=== PATIENT | male | born 1970 | race Caucasian/White ===

== ENCOUNTER 2016-03-08 09:49 | Emergency (ER) ==
--- NOTE | 2016-03-08 10:17 | ED EKG INTERP ---
EKG Interpretation - EKG Time of EKG reading by physician:: 09:59 EKG Read and Signed by:: Carlo Pena EKG Interpretation (*Must complete 3 of following elements*): Abnormal Rate: 96 Rhythm: sinus with short MA Logan: normal ST Wave: normal Attestation - Scribe Verification/Attestation Scribe:: Macy Roy Acting as Scribe for:: Carlo Pena Scribe documention review:: This chart was documented by a scribe and accurately reflects the service the provider performed and the decisions made by the provider.
--- NOTE | 2016-03-08 10:33 | EKG Report ---
Test Performed on : 03/08/2016 09:59:00 AM Test Reason : cp/sob Blood Pressure : / mmHG Vent. Rate : 096 BPM Atrial Rate : 096 BPM P-R Int : 108 ms QRS Dur : 072 ms QT Int : 352 ms P-R-T Axes : 061 074 037 degrees QTc Int : 444 ms Sinus rhythm. with short SD Otherwise normal ECG When compared with ECG of 03-JUN-2010 11:46, Nonspecific T wave abnormality, improved in Inferior leads Unconfirmed Result
[2016-03-08] MEDS ORDERED: NS 1,000 ML IV PRN (11:24)
--- NOTE | 2016-03-08 11:24 | PROVIDER DOCUMENTATION ---
HPI-Neurological Disorder - General Source: patient, family - History of Present Illness-Neuro Severity: reports: moderate Onset/Duration: reports: 24 hours ago Timing: reports: gone now Context: reports: seizure activity Character of Altered Mental Status: reports: seizure activity Any recent trauma/injury?: reports: none New weakness or altered sensation location:: reports: none Cognitive Baseline: alert, oriented x3 Gait Baseline: walks without assistance Similar Symptoms Previously?: No Recently seen or treated by another doctor?: No <Macy Roy - Last Filed: 03/08/16 14:52> <Juanito Fischer - Last Filed: 03/08/16 15:05> - General Chief Complaint: Altered Mental Status Stated Complaint: STROKE LIKE SYMPTOMS Time Seen by Provider: 03/08/16 10:51 Allergies/Adverse Reactions: Patient Allergies Allergy/AdvReac Type Severity Reaction Status Date / Time No Known Allergies Allergy Verified 03/08/16 10:33 Home Medications: Clonazepam [Klonopin] 0.5 mg PO BID PRN PRN 11/04/15 Fluoxetine HCl [Prozac] 40 mg PO DAILY 11/04/15 - History of Present Illness-Neuro Nature of Presenting Problem: Reports severe hx of anxiety and depression controls it with Prozac and Klonopine reports been out of Klonopine for 1week. at bedside reports two episodes yesterday reports jerking and spasms confused after unable to walk or sit up afterwards. No seizure hx. Pt very anxious. (Macy Roy) Review of Systems - Adult - REVIEW OF SYSTEMS - ADULT Constitutional: denies: chills, fever, fatique Eyes: reports: no symptoms reported Ears, Nose, Mouth & Throat: denies: ear pain, sinus problem, throat pain Cardiovascular: reports: no symptoms reported Respiratory: reports: no symptoms reported Gastrointestinal: denies: abdominal pain, diarrhea, nausea, vomiting Genitourinary: reports: no symptoms reported Musculoskeletal: reports: no symptoms reported Integumentary: reports: no symptoms reported Neurological: reports: see HPI, seizure. denies: loss of balance, numbness, paresthesia Psychiatric: reports: no symptoms reported Endocrine: reports: no symptoms reported Hematologic/Lymphatic: reports: no symptoms reported Allergic/Immunologic: reports: no symptoms reported All Other Systems: Reviewed and Negative <Macy Roy - Last Filed: 03/08/16 14:52> Past History - Adult - PAST MEDICAL HISTORY-ADULT Review of Records: reports: Nursing Assessment Review, Medications Reviewed Major Childhood Illnesses: reports: denies history Cardiovascular: reports: HTN, hyperlipidemia Respiratory: reports: COPD - IMMUNIZATION STATUS Childhood Immunizations: See Nurse Assessment Flu Vaccine: See Nurse Assessment - SOCIAL HISTORY Smoking: cigarettes, greater than 1 pack/day Provider spent 3-5 mins advising pt. on dangers of tobacco.: Discussed manners to quit use, and f/u contacts for add'l counseling. Substance Use: none/never <Macy Roy - Last Filed: 03/08/16 14:52> Physical Exam- Neurological - Physical Exam-Neuro Initial Vital Signs Reviewed: Yes General Appearance: appears well, alert, no apparent distress, anxious Eye Exam: bilateral eye: normal inspection, PERRL, EOMI HENMT: normocephalic/atraumatic, normal ENT inspection, TMs normal, pharynx normal Head Injury: no evidence of injury Neck: non-tender, full range of motion, supple, normal inspection Respiratory: chest non-tender, lungs clear, normal breath sounds, no pleuratic chest pain, no respiratory distress, no accessory muscle use Cardiovascular: normal peripheral pulses, regular rate, rhythm, no edema, no gallop, no JVD, no murmur Abdominal Exam: normal bowel sounds, non tender, soft, no organomegaly, no pulsatile mass Lymphatic: no adenopathy Extremity: normal range of motion, non-tender, normal gait, normal inspection, no pedal edema, no calf tenderness, normal capillary refill, pelvis stable web software engineer Exam: normal hearing, normal speech, PERRL Coordination/Gait: normal finger to nose, normal gait, negative Romberg's sign Motor/Sensory: no motor deficit, no sensory deficit, no pronator drift, negative Babinski's sign Neurologic: web software engineer II-XII nml as tested, grossly normal, no motor/sensory deficits Integumentary: normal color, normal turgor, warm/dry Psych/Mental Status: normal thought content, normal thought process, oriented x 3, anxious - Glascow Coma Scale Best Eye Response: (4) open spontaneously Best Verbal Response: (5) oriented Best Motor Response: (6) obeys commands Total Glascow Score: 15 <Macy Roy - Last Filed: 03/08/16 14:52> Progress - XRAY 1 XRAY: Bilateral XRAY Study: Chest Impression: Normal XRAY Interpretation: nad 2 XRAY: Bilateral XRAY Study: Chest Impression: Normal - CT/MRI 1 CT Study: Head Impression: Normal CT Results: nad <Macy Roy - Last Filed: 03/08/16 14:52> <Juanito Fischer - Last Filed: 03/08/16 15:05> - PLAN OF CARE/RESULTS Progress/Plan/Lab Results: Orders Category Date Time Status EKG [EKG] Stat Ther 03/08/16 09:56 Draft Vital Signs - 24 hr 03/08/16 10:01 Temperature 98.1 F Pulse Rate 96 H Respiratory 20 Rate Blood Pressure 171/83 O2 Sat by Pulse 99 Oximetry Orders Category Date Time Status Cardiac Monitoring DIRECTED Care 03/08/16 11:24 Active Finger Stick Blood Sugar (ED) DIRECTED Care 03/08/16 11:24 Active Misc. NRSG Communication Order DIRECTED Care 03/08/16 11:24 Active Saline Loc NOW Care 03/08/16 11:24 Active CHEST-PORTABLE [RAD] Stat Exams 03/08/16 11:24 Completed HEAD W/O CONTRAST [CT] Stat Exams 03/08/16 11:24 Completed CBC WITH ELECTRONIC DIFF [HEME] Stat Lab 03/08/16 10:25 Completed COMPREHENSIVE METABOLIC PANEL [CHEM] Stat Lab 03/08/16 10:25 Completed PROTIME WITH INR [COAG] Stat Lab 03/08/16 10:25 Completed PTT [COAG] Stat Lab 03/08/16 10:25 Completed TROPONIN T Stat Lab 03/08/16 10:25 Completed URINALYSIS W/POSS RFLX CULT [URINALYSIS] Stat Lab 03/08/16 14:21 Completed URINE DRUG SCREEN Stat Lab 03/08/16 14:21 Received 0.9% Sodium Chloride Inj [Ns] 1,000 ml Med 03/08/16 11:24 Active IV As Directed Lorazepam [Ativan] Med 03/08/16 11:38 Discontinued 0.5 mg IV NOW ONE Lorazepam [Ativan] Med 03/08/16 11:39 Discontinued 0.5 mg IV NOW ONE EKG [EKG] Stat Ther 03/08/16 09:56 Draft Laboratory Tests 03/08/16 03/08/16 03/08/16 10:25 10:25 10:25 WBC 11.42 H RBC 4.86 Hgb 15.6 Hct 45.4 MCV 93.4 MCH 32.1 H MCHC 34.4 RDW Std Deviation 14.1 Plt Count 415 H MPV 8.8 Immature Gran % (Auto) 0.2 Neut % (Auto) 67.2 Lymph % (Auto) 22.8 [place] % (Auto) 8.3 Eos % (Auto) 0.9 Baso % (Auto) 0.6 Immature Gran # (Auto) 0.02 Neut # (Auto) 7.68 H Lymph # (Auto) 2.60 [place] # (Auto) 0.95 H Eos # (Auto) 0.10 Baso # (Auto) 0.07 PT 11.4 INR 1.07 PTT (Actin FS) 28.9 Sodium 127 L Potassium 4.0 Chloride 92 L Carbon Dioxide 23 L Anion Gap 12 BUN 15 Creatinine 0.9 Estimated GFR/1.73 m2 > 60 BUN/Creatinine Ratio 17 Glucose 97 Calculated Osmolality 256 Calcium 9.2 Total Bilirubin 0.42 AST 14 ALT 11 Alkaline Phosphatase 63 Troponin T Total Protein 7.0 Albumin 4.3 Globulin 2.7 Albumin/Globulin Ratio 1.6 Urine Source Urine Color Urine Turbidity Urine pH Ur Specific [place] Urine Protein Ur Glucose (Stick) Ur Ketones (Stick) Urine Blood Urine Nitrite Urine Bilirubin Urobilinogen Dipstick Urine Leukocytes Urine WBC (Auto) Urine RBC (Auto) U Epithel Cells (Auto) Urine Bacteria (Auto) 03/08/16 03/08/16 10:25 14:21 WBC RBC Hgb Hct MCV MCH MCHC RDW Std Deviation Plt Count MPV Immature Gran % (Auto) Neut % (Auto) Lymph % (Auto) [place] % (Auto) Eos % (Auto) Baso % (Auto) Immature Gran # (Auto) Neut # (Auto) Lymph # (Auto) [place] # (Auto) Eos # (Auto) Baso # (Auto) PT INR PTT (Actin FS) Sodium Potassium Chloride Carbon Dioxide Anion Gap BUN Creatinine Estimated GFR/1.73 m2 BUN/Creatinine Ratio Glucose Calculated Osmolality Calcium Total Bilirubin AST ALT Alkaline Phosphatase Troponin T < 0.010 Total Protein Albumin Globulin Albumin/Globulin Ratio Urine Source CLEAN CATCH Urine Color YELLOW Urine Turbidity CLEAR Urine pH 5.5 Ur Specific [place] 1.028 Urine Protein TRACE A Ur Glucose (Stick) NEGATIVE Ur Ketones (Stick) NEGATIVE Urine Blood NEGATIVE Urine Nitrite NEGATIVE Urine Bilirubin NEGATIVE Urobilinogen Dipstick NORMAL Urine Leukocytes NEGATIVE Urine WBC (Auto) <10 Urine RBC (Auto) <10 U Epithel Cells (Auto) <10 Urine Bacteria (Auto) NEGATIVE (Macy Roy) Laboratory Tests 03/08/16 03/08/16 03/08/16 10:25 10:25 10:25 WBC 11.42 H RBC 4.86 Hgb 15.6 Hct 45.4 MCV 93.4 MCH 32.1 H MCHC 34.4 RDW Std Deviation 14.1 Plt Count 415 H MPV 8.8 Immature Gran % (Auto) 0.2 Neut % (Auto) 67.2 Lymph % (Auto) 22.8 [place] % (Auto) 8.3 Eos % (Auto) 0.9 Baso % (Auto) 0.6 Immature Gran # (Auto) 0.02 Neut # (Auto) 7.68 H Lymph # (Auto) 2.60 [place] # (Auto) 0.95 H Eos # (Auto) 0.10 Baso # (Auto) 0.07 PT 11.4 INR 1.07 PTT (Actin FS) 28.9 Sodium 127 L Potassium 4.0 Chloride 92 L Carbon Dioxide 23 L Anion Gap 12 BUN 15 Creatinine 0.9 Estimated GFR/1.73 m2 > 60 BUN/Creatinine Ratio 17 Glucose 97 Calculated Osmolality 256 Calcium 9.2 Total Bilirubin 0.42 AST 14 ALT 11 Alkaline Phosphatase 63 Troponin T Total Protein 7.0 Albumin 4.3 Globulin 2.7 Albumin/Globulin Ratio 1.6 Urine Source Urine Color Urine Turbidity Urine pH Ur Specific [place] Urine Protein Ur Glucose (Stick) Ur Ketones (Stick) Urine Blood Urine Nitrite Urine Bilirubin Urobilinogen Dipstick Urine Leukocytes Urine WBC (Auto) Urine RBC (Auto) U Epithel Cells (Auto) Urine Bacteria (Auto) Urine Opiates Screen Ur Oxycodone Screen Ur Methadone, Qual Ur Barbiturates Screen Ur Phencyclidine Scrn Ur Amphetamines Screen U Benzodiazepines Scrn Urine Cocaine Screen U Cannabinoids Screen 03/08/16 03/08/16 03/08/16 10:25 14:21 14:21 WBC RBC Hgb Hct MCV MCH MCHC RDW Std Deviation Plt Count MPV Immature Gran % (Auto) Neut % (Auto) Lymph % (Auto) [place] % (Auto) Eos % (Auto) Baso % (Auto) Immature Gran # (Auto) Neut # (Auto) Lymph # (Auto) [place] # (Auto) Eos # (Auto) Baso # (Auto) PT INR PTT (Actin FS) Sodium Potassium Chloride Carbon Dioxide Anion Gap BUN Creatinine Estimated GFR/1.73 m2 BUN/Creatinine Ratio Glucose Calculated Osmolality Calcium Total Bilirubin AST ALT Alkaline Phosphatase Troponin T < 0.010 Total Protein Albumin Globulin Albumin/Globulin Ratio Urine Source CLEAN CATCH Urine Color YELLOW Urine Turbidity CLEAR Urine pH 5.5 Ur Specific [place] 1.028 Urine Protein TRACE A Ur Glucose (Stick) NEGATIVE Ur Ketones (Stick) NEGATIVE Urine Blood NEGATIVE Urine Nitrite NEGATIVE Urine Bilirubin NEGATIVE Urobilinogen Dipstick NORMAL Urine Leukocytes NEGATIVE Urine WBC (Auto) <10 Urine RBC (Auto) <10 U Epithel Cells (Auto) <10 Urine Bacteria (Auto) NEGATIVE Urine Opiates Screen NONE DETECTED Ur Oxycodone Screen NONE DETECTED Ur Methadone, Qual NONE DETECTED Ur Barbiturates Screen NONE DETECTED Ur Phencyclidine Scrn NONE DETECTED Ur Amphetamines Screen NONE DETECTED U Benzodiazepines Scrn PRESUMPTIVE POSITIVE A Urine Cocaine Screen NONE DETECTED U Cannabinoids Screen NONE DETECTED (Juanito Fischer) Departure - Departure Time of Disposition Order: 14:53 Certified Medical Emergency: Emergent <Macy Roy - Last Filed: 03/08/16 14:52> - Departure Time of Disposition Order: 15:04 Certified Medical Emergency: Emergent <Juanito Fischer - Last Filed: 03/08/16 15:05> - Departure DIAGNOSIS: Panic attack Disposition: HOME 01 Condition: Good Prescriptions: Chlordiazepoxide [Librium] 25 mg PO Q6H PRN PRN #7 capsule PRN Reason: Anxiety Referrals: None,PCP [Primary Care Provider] - Attestation - Scribe Verification/Attestation Scribe:: Macy Roy Acting as Scribe for:: Juanito Fischer Scribchidi documention review:: This chart was documented by a scribe and accurately reflects the service the provider performed and the decisions made by the provider. <Macy Roy - Last Filed: 03/08/16 14:52> Physician Attestation
[2016-03-08] MEDS ORDERED: ATIVAN IV ONE ×2 (11:38→11:39)
[2016-03-08 11:45] LABS: MANUAL DIFF NEEDED? NO
[2016-03-08 11:47] LABS: BASO% 0.6 % (0.0-0.8); EOS% 0.9 % (0.0-10.0); HEMATOCRIT 45.4 % (42.0-52.0); HEMOGLOBIN 15.6 g/dL (14.0-18.0); IMM GRAN# 0.02 X1000 (0.0-0.04); IMM GRAN% 0.2 % (0.0-0.5); LYMPH% 22.8 % (20.5-51.1); MCH 32.1 PG (27-31); MCHC 34.4 g/dL (33-37); MCV 93.4 FL (81-99); MONO# 0.95 X1000 (0.11-0.59); MONO% 8.3 % (1.7-9.3); MPV 8.8 FL (7.4-10.4); NEUT% 67.2 % (42.2-75.2); PLT 415 X1000 (130-400); RBC 4.86 XMIL (4.7-6.1)
[2016-03-08 11:57] LABS: INR 1.07; PROTIME 11.4 Seconds (9.2-11.7); PTT 28.9 Seconds (22.0-36.0)
[2016-03-08 12:19] LABS: AGAP 12; ALBUMIN 4.3 g/dL (3.5-5.0); ALKALINE PHOSPHATASE 63 U/L (32-122); BUN 15 mg/dL (8-22); CALCIUM 9.2 mg/dL (8.8-10.2); CHLORIDE 92 mmol/L (98-107); COSMO 256; GOT 14 U/L (10-34); GPT 11 U/L (10-44); SODIUM 127 mmol/L (136-145); TCO2 23 mmol/L (25-35); TOTAL BILIRUBIN 0.42 mg/dL (0.20-1.00)
--- NOTE | 2016-03-08 13:28 | Diag Imaging Result Document ---
PROCEDURE NAME: HEAD W/O CONTRAST - 03/08/2016 CT OF THE HEAD WITHOUT CONTRAST: FINDINGS: There is no evidence of mass effect, bleed, or abnormal extraaxial fluid collection. There are calcifications in the internal carotid arteries bilaterally. Compared to 09/13/2011, there has been no significant change in the appearance of the brain. IMPRESSION: Stable CT of the head.
--- NOTE | 2016-03-08 13:31 | Diag Imaging Result Document ---
PROCEDURE NAME: CHEST-PORTABLE - 03/08/2016 AP PORTABLE CHEST: TIME: 1208 hours. FINDINGS: There are calcifications in the left hilum. There is no evidence of acute cardiac or pulmonary disease. Compared to 06/03/2010, there has been no significant change. IMPRESSION: No acute disease.
[2016-03-08 14:32] LABS: URINE CULTURE NEEDED? NO; URINE MICRO REVIEW NEEDED? NO; URINE SOURCE CLEAN CATCH
[2016-03-08 14:37] LABS: BILIRUBIN URINE NEGATIVE (NEGATIVE); BLOOD URINE NEGATIVE (NEGATIVE); COLOR YELLOW; GLUCOSE URINE NEGATIVE (NEGATIVE); LEUKOCYTES URINE NEGATIVE (NEGATIVE); NITRITE URINE NEGATIVE (NEGATIVE); PH URINE 5.5; PROTEIN URINE TRACE mg/dL (NEGATIVE); SP GRAVITY URINE 1.028; TURBIDITY URINE CLEAR (CLEAR); UR EPITHELIAL CELLS <10 /HPF (<10); URINE BACTERIA NEGATIVE /HPF; URINE RBC <10 /HPF (<10); URINE WBC <10 /HPF (<10); UROBILINOGEN URINE NORMAL (NORMAL)
[2016-03-08 14:57] LABS: UR AMPHETAMINES QUAL NONE DETECTED (NONE DETECT); UR BARBITUATES QUAL NONE DETECTED (NONE DETECT); UR BENZODIAZEPIN QUAL PRESUMPTIVE POSITIVE (NONE DETECT); UR CANNABINOIDS QUAL NONE DETECTED (NONE DETECT); UR COCAINE QUAL NONE DETECTED (NONE DETECT); UR METHADONE QUAL NONE DETECTED (NONE DETECT); UR OPIATES QUAL NONE DETECTED (NONE DETECT); UR OXYCODONE QUAL NONE DETECTED (NONE DETECT); UR PCP QUAL NONE DETECTED (NONE DETECT)
[2016-03-08 15:11] VITALS: BP 136/90
== END 2016-03-08 15:22 | disposition home or self-care (01) ==
LOC: ED 09:49
DX: F41.0 Panic disorder [episodic paroxysmal anxiety] (principal); I10 Essential (primary) hypertension; E78.5 Hyperlipidemia, unspecified; J44.9 Chronic obstructive pulmonary disease, unspecified; F17.210 Nicotine dependence, cigarettes, uncomplicated; Z71.6 Tobacco abuse counseling; Z79.899 Other long term (current) drug therapy
CPT/HCPCS: 70450; 71010; 80053; 81001; 84484; 85025; 85610; 85730; 93005; 96374; 96376; G0480; J2060

== ENCOUNTER 2018-11-09 14:13 | Inpatient (IN) ==
[2018-11-09] MEDS ORDERED: NS 1,000 ML IV PRN (14:33)
--- NOTE | 2018-11-09 14:54 | Diag Imaging Result Doc PS360 ---
EXAM: CT HEAD W/O CONTRAST INDICATION: stroke like TECHNIQUE: This exam was performed using automated exposure control, adjustment of mA or kV according to patient size, and/or use of iterative reconstruction technique. COMPARISON: 03/08/2016 FINDINGS: There is no definite acute infarct given the limited sensitivity of CT versus MRI. There is no discrete intracranial mass, mass effect, or intracranial hemorrhage. The surrounding soft tissues and bony structures are essentially unremarkable. IMPRESSION: No evidence of acute intracranial pathology. Electronically signed by Kwame Malik 11/09/2018 2:52 PM
[2018-11-09 15:29] LABS: INR 0.96; PROTIME 12.9 Seconds (11.0-16.0)
[2018-11-09 15:30] LABS: PTT 32.2 Seconds (22.3-41.8)
[2018-11-09 15:32] LABS: BASO# 0.03 X1000 (0.0-0.2); BASO% 0.5 % (0.0-0.8); EOS# 0.05 X1000 (0.0-0.7); EOS% 0.8 % (0.0-10.0); HEMATOCRIT 42.8 % (42.0-52.0); HEMOGLOBIN 14.6 g/dL (14.0-18.0); LYMPH# 1.77 X1000 (1.2-3.4); LYMPH% 26.9 % (20.5-51.1); MCH 31.5 PG (27-31); MCHC 34.1 g/dL (33-37); MCV 92.2 FL (81-99); MONO# 0.67 X1000 (0.11-0.59); MONO% 10.2 % (1.7-9.3); MPV 9.3 FL (7.4-10.4); NEUT# 4.07 X1000 (1.4-6.5); NEUT% 61.6 % (42.2-75.2); PLT 242 X1000 (130-400); RBC 4.64 XMIL (4.7-6.1); RDW 13.7 % (11.5-14.5); WBC 6.59 X1000 (4.8-10.8)
[2018-11-09 15:59] LABS: AGAP 15; ALB/GLOB RATIO 1.8; ALBUMIN 4.1 g/dL (3.5-5.0); ALKALINE PHOSPHATASE 62 U/L (32-122); BUN 14 mg/dL (8-22); CALCIUM 8.4 mg/dL (8.8-10.2); CHLORIDE 96 mmol/L (98-107); COSMO 273; CREATININE 0.6 mg/dL (0.7-1.2); ESTIMATED GFR > 60; GLUCOSE 105 mg/dL (70-104); GOT 40 U/L (10-34); GPT 46 U/L (10-44); POTASSIUM 4.4 mmol/L (3.5-5.1); SODIUM 136 mmol/L (136-145); TCO2 25 mmol/L (25-35); TOTAL BILIRUBIN < 0.15 mg/dL (0.20-1.00); TOTAL PROTEIN 6.4 g/dL (6.3-8.3)
--- NOTE | 2018-11-09 16:26 | Diag Imaging Result Doc PS360 ---
EXAM: CHEST-PORTABLE INDICATION: stroke like symptoms TECHNIQUE: One view COMPARISON: 10/14/2017 FINDINGS: There is evidence of prior granulomatous disease, stable. The lungs are grossly clear. There is no discrete pleural fluid collection or pneumothorax. The cardiomediastinal silhouette and central vasculature are grossly unremarkable. IMPRESSION: No evidence of acute pathology by plain radiograph. Electronically signed by Kwame Malik 11/09/2018 4:24 PM
--- NOTE | 2018-11-09 18:02 | PROVIDER DOCUMENTATION ---
This chart was entered by Radha Malik Scribe, acting as scribe for Nevaeh Shepard MD. HPI-Neurological Disorder - General Source: patient, RN/MD <Nevaeh Shepard - Last Filed: 11/09/18 19:01> <Shweta Terry - Last Filed: 11/09/18 19:35> - General Chief Complaint: Stroke-Like Symptoms Stated Complaint: STROKE LIKE SYMPTOMS Time Seen by Provider: 11/09/18 14:33 Allergies/Adverse Reactions: Patient Allergies Allergy/AdvReac Type Severity Reaction Status Date / Time ketorolac tromethamine * Allergy Unknown Verified 11/09/18 16:17 [From Toradol] meperidine HCl * Allergy Unknown Verified 11/09/18 16:17 [From Demerol] Penicillins Allergy RASH Verified 11/09/18 16:17 tramadol AdvReac Unknown Verified 11/09/18 16:17 Home Medications: Home Medication List Medication Instructions Recorded Confirmed Last Taken Type Hydrocodone/Acetaminophen [[place] 1 each PO Q4-6H PRN PRN #20 tablet 08/16/17 11/09/18 11/08/18 09:00 Rx 10-325 Tablet] Albuterol Sulfate Inhaler 2 puff INH Q6H PRN PRN #1 inhaler 10/14/17 11/09/18 Unknown Rx [Ventolin Hfa] Clonazepam [Klonopin] 1 mg PO BID PRN PRN 10/14/17 11/09/18 Unknown History Venlafaxine [Effexor] 150 mg PO DAILY 11/09/18 11/09/18 Unknown History - History of Present Illness-Neuro Nature of Presenting Problem: 48 yowm c/o left sided weakness, slight left sided facial droop, minimal slurred speech, ataxia and trouble standing/walking. pt sts started feeling disoriented monday. denies alcohol use. pt has rash on face. denies cp, h/a, and nvd. (Nevaeh Shepard) Review of Systems - Adult - REVIEW OF SYSTEMS - ADULT Constitutional: reports: no symptoms reported. denies: fever, fatique, night sweats Eyes: reports: no symptoms reported Ears, Nose, Mouth & Throat: reports: no symptoms reported Cardiovascular: reports: no symptoms reported. denies: chest pain, edema, palpitations Respiratory: reports: no symptoms reported Gastrointestinal: reports: no symptoms reported. denies: diarrhea, nausea, vomiting Genitourinary: reports: no symptoms reported Musculoskeletal: reports: see HPI, muscle weakness (left sided). denies: joint pain, joint swelling, muscle aches Integumentary: reports: no symptoms reported Neurological: reports: see HPI, ataxia, slurred speech, other (left sided facial droop slight). denies: dizziness/vertigo, headache/migraines, syncope Psychiatric: reports: no symptoms reported. denies: alcohol/drug dependence Endocrine: reports: no symptoms reported Hematologic/Lymphatic: reports: no symptoms reported Allergic/Immunologic: reports: no symptoms reported All Other Systems: Reviewed and Negative <Nevaeh Shepard - Last Filed: 11/09/18 19:01> Past History - Adult - PAST MEDICAL HISTORY-ADULT Review of Records: reports: Old Records Reviewed, Nursing Assessment Review, Medications Reviewed, Social history reviewed & non-contributory. Major Childhood Illnesses: reports: denies history Cardiovascular: reports: HTN, hyperlipidemia Respiratory: reports: COPD Gastrointestinal: reports: denies history Obstetrical/Gynecological: reports: denies history Genitourinary: reports: denies history Musculoskeletal: reports: chronic pain Neurological: reports: denies history Psychiatric: reports: anxiety, depression Endocrine/Immune: reports: denies history Other Conditions: reports: denies history - PRIOR SURGERIES/PROCEDURES Surgical/Procedure History: reports: tonsillectomy, back/neck - IMMUNIZATION STATUS Childhood Immunizations: See Nurse Assessment Flu Vaccine: See Nurse Assessment - FAMILY HISTORY Family History: reviewed, not pertinent - SOCIAL HISTORY Smoking: cigarettes, greater than 1 pack/day Provider spent 3-5 mins advising pt. on dangers of tobacco.: Discussed manners to quit use, and f/u contacts for add'l counseling. Substance Use: none/never <Nevaeh Shepard - Last Filed: 11/09/18 19:01> Physical Exam- Neurological - Physical Exam-Neuro Initial Vital Signs Reviewed: Yes General Appearance: alert, no apparent distress. negative: lethargic, slow to respond, obtunded Eye Exam: bilateral eye: PERRL, EOMI, other (rash around the left orbit associat ed with episleritis and blepharitis ) HENMT: normocephalic/atraumatic, moist mucous membranes, normal ENT inspection, other ( encephalitis on face, left sided facial droop). negative: frontal tenderness, maxillary tenderness Head Injury: no evidence of injury. negative: ecchymosis, lacerations, swelling, tenderness Neck: non-tender, full range of motion, supple, normal inspection Respiratory: chest non-tender, lungs clear, normal breath sounds Cardiovascular: normal peripheral pulses, regular rate, rhythm Abdominal Exam: normal bowel sounds, non tender, soft Lymphatic: no adenopathy Peripheral Pulses: radial (R): 2+, radial (L): 2+ Extremity: non-tender, normal capillary refill, abnormal NV exam. negative: normal range of motion, normal gait, normal inspection, deformity, erythema, inflammation belt maker helper Exam: normal hearing, PERRL, abnormal speech (slight slurred), facial droop (left facial), facial weakness (left facial). negative: normal speech, abnormal eye position, abnormal gag reflex, abnormal pupil position, gaze palsy Coordination/Gait: abnormal gait (has to have assistance from rn when standing, would not walk as asked). negative: normal gait Motor/Sensory: weak motor strength RLE, weak motor strength LLE. negative: no motor deficit, no sensory deficit, weak motor strength RUE, weak motor strength LUE Neurologic: abnormal gait, facial droop (left), motor weakness (left sided). negative: belt maker helper II-XII nml as tested, grossly normal, no motor/sensory deficits, EOM palsy Integumentary: normal color, normal turgor, warm/dry, zoster-like rash (face). negative: abrasion(s), ecchymosis, embolic lesions Psych/Mental Status: normal mood/affect, normal thought content, normal thought process, oriented x 3 - Glascow Coma Scale Best Eye Response: (4) open spontaneously Best Verbal Response: (4) confused conversation Best Motor Response: (6) obeys commands Total Glascow Score: 15 <Nevaeh Shepard - Last Filed: 11/09/18 19:01> Progress - PLAN OF CARE/RESULTS Result Diagrams: 11/09/18 15:04 11/09/18 15:04 - REASSESSMENT Reassessment #1 Time Reassessed: 17:47 Status: other (pt sts that he takes klonopin and anti depressants.) - EKG 1 Time of EKG reading by physician:: 14:55 EKG Read and Signed by:: Nevaeh Shepard EKG Interpretation (*Must complete 3 of following elements*): Normal Rate: 92 Rhythm: SR w/short IA [place]: normal QRS: normal IA Interval: shortened ST Wave: normal - CT/MRI 1 CT Study: Head Impression: Normal, See EMR Report ( EXAM: CT HEAD W/O CONTRAST INDICATION: stroke like TECHNIQUE: This exam was performed using automated exposure control, adjustment of mA or kV according to patient size, and/or use of iterative reconstruction technique. COMPARISON: 03/08/2016 FINDINGS: There is no definite acute infarct given the limited sensitivity of CT versus MRI. There is no discrete intracranial mass, mass effect, or intracranial hemorrhage. The surrounding soft tissues and bony structures are essentially unremarkable. IMPRESSION: No evidence of acute intracranial pathology. Electronically signed by Kwame Malik 11/09/2018 2:52 PM) - CONSULTS/PCP/HOSPITALIST Notification #1 *Consult/PCP/Hospitalist*: Dr Patterson Time Discussed: 18:26 Consult Disposition: other (consulted with Dr Patterson who recommended MRI and admited patient,) - CHANGE OF SHIFT REPORT (ED Provider) 1 Report Given and Care Transferred to:: Dr. Terry Time of Transfer: 19:01 <Nevaeh Shepard - Last Filed: 11/09/18 19:01> - PLAN OF CARE/RESULTS Result Diagrams: 11/09/18 15:04 11/09/18 15:04 - REASSESSMENT Reassessment #2 Status: improving (Pt signed out to me by Dr. Shepard pending admission by the hospitalist. Discussed case with Dr. Castellano, hospitalist who will see and admit pt.) <Shweta Terry - Last Filed: 11/09/18 19:35> - PLAN OF CARE/RESULTS Progress/Plan/Lab Results: Vital Signs - 8 hr 11/09/18 14:27 11/09/18 16:20 Temperature 97.4 F L Pulse Rate 103 H 91 H Respiratory Rate 18 24 Blood Pressure 110/73 127/79 O2 Sat by Pulse Oximetry 98 96 Laboratory Results - last 24 hr 11/09/18 11/09/1819 15:04 15:04 15:04 WBC 6.59 RBC 4.64 L Hgb 14.6 Hct 42.8 MCV 92.2 MCH 31.5 H MCHC 34.1 RDW Std Deviation 13.7 Plt Count 242 MPV 9.3 Immature Gran % (Auto) 0.0 Neut % (Auto) 61.6 Lymph % (Auto) 26.9 [place] % (Auto) 10.2 H Eos % (Auto) 0.8 Baso % (Auto) 0.5 Immature Gran # (Auto) 0.00 Neut # (Auto) 4.07 Lymph # (Auto) 1.77 [place] # (Auto) 0.67 H Eos # (Auto) 0.05 Baso # (Auto) 0.03 PT 12.9 INR 0.96 PTT (Actin FS) 32.2 Sodium 136 Potassium 4.4 Chloride 96 L Carbon Dioxide 25 Anion Gap 15 BUN 14 Creatinine 0.6 L Estimated GFR/1.73 m2 > 60 BUN/Creatinine Ratio 23 Glucose 105 H Calculated Osmolality 273 Calcium 8.4 L Total Bilirubin < 0.15 L AST 40 H ALT 46 H Alkaline Phosphatase 62 Troponin T Total Protein 6.4 Albumin 4.1 Globulin 2.3 Albumin/Globulin Ratio 1.8 Urine Source Urine Color Urine Turbidity Urine pH Ur Specific [place] Urine Protein Ur Glucose (Stick) Ur Ketones (Stick) Urine Blood Urine Nitrite Urine Bilirubin Urobilinogen Dipstick Urine Leukocytes Urine WBC (Auto) Urine RBC (Auto) U Epithel Cells (Auto) Urine Bacteria (Auto) Urine Opiates Screen Ur Oxycodone Screen Ur Methadone, Qual Ur Barbiturates Screen Ur Phencyclidine Scrn Ur Amphetamines Screen U Benzodiazepines Scrn Urine Cocaine Screen U Cannabinoids Screen Plasma/Serum Ethyl Alc 11/09/18 11/09/18 11/09/18 15:04 15:04 18:10 WBC RBC Hgb Hct MCV MCH MCHC RDW Std Deviation Plt Count MPV Immature Gran % (Auto) Neut % (Auto) Lymph % (Auto) [place] % (Auto) Eos % (Auto) Baso % (Auto) Immature Gran # (Auto) Neut # (Auto) Lymph # (Auto) [place] # (Auto) Eos # (Auto) Baso # (Auto) PT INR PTT (Actin FS) Sodium Potassium Chloride Carbon Dioxide Anion Gap BUN Creatinine Estimated GFR/1.73 m2 BUN/Creatinine Ratio Glucose Calculated Osmolality Calcium Total Bilirubin AST ALT Alkaline Phosphatase Troponin T < 0.010 Total Protein Albumin Globulin Albumin/Globulin Ratio Urine Source CLEAN CATCH Urine Color YELLOW Urine Turbidity CLEAR Urine pH 6.5 Ur Specific [place] 1.023 Urine Protein 30 A Ur Glucose (Stick) 70 A Ur Ketones (Stick) NEGATIVE Urine Blood NEGATIVE Urine Nitrite NEGATIVE Urine Bilirubin NEGATIVE Urobilinogen Dipstick 3 A Urine Leukocytes NEGATIVE Urine WBC (Auto) <10 Urine RBC (Auto) <10 U Epithel Cells (Auto) <10 Urine Bacteria (Auto) NEGATIVE Urine Opiates Screen Ur Oxycodone Screen Ur Methadone, Qual Ur Barbiturates Screen Ur Phencyclidine Scrn Ur Amphetamines Screen U Benzodiazepines Scrn Urine Cocaine Screen U Cannabinoids Screen Plasma/Serum Ethyl Alc 36 H 11/09/18 18:10 WBC RBC Hgb Hct MCV MCH MCHC RDW Std Deviation Plt Count MPV Immature Gran % (Auto) Neut % (Auto) Lymph % (Auto) [place] % (Auto) Eos % (Auto) Baso % (Auto) Immature Gran # (Auto) Neut # (Auto) Lymph # (Auto) [place] # (Auto) Eos # (Auto) Baso # (Auto) PT INR PTT (Actin FS) Sodium Potassium Chloride Carbon Dioxide Anion Gap BUN Creatinine Estimated GFR/1.73 m2 BUN/Creatinine Ratio Glucose Calculated Osmolality Calcium Total Bilirubin AST ALT Alkaline Phosphatase Troponin T Total Protein Albumin Globulin Albumin/Globulin Ratio Urine Source Urine Color Urine Turbidity Urine pH Ur Specific [place] Urine Protein Ur Glucose (Stick) Ur Ketones (Stick) Urine Blood Urine Nitrite Urine Bilirubin Urobilinogen Dipstick Urine Leukocytes Urine WBC (Auto) Urine RBC (Auto) U Epithel Cells (Auto) Urine Bacteria (Auto) Urine Opiates Screen NONE DETECTED Ur Oxycodone Screen NONE DETECTED Ur Methadone, Qual NONE DETECTED Ur Barbiturates Screen NONE DETECTED Ur Phencyclidine Scrn NONE DETECTED Ur Amphetamines Screen PRESUMPTIVE POSITIVE A U Benzodiazepines Scrn NONE DETECTED Urine Cocaine Screen NONE DETECTED U Cannabinoids Screen NONE DETECTED Plasma/Serum Ethyl Alc Orders Category Date Time Status Cardiac Monitoring DIRECTED Care 11/09/18 14:33 Active Finger Stick Blood Sugar (ED) DIRECTED Care 11/09/18 14:33 Active Misc. NRSG Communication Order DIRECTED Care 11/09/18 14:33 Active Saline Loc NOW Care 11/09/18 14:33 Active CHEST-PORTABLE [RAD] Stat Exams 11/09/18 14:[address] HEAD W/O CONTRAST [CT] Stat Exams 11/09/18 14:31 Completed ALCOHOL BLOOD Stat Lab 11/09/18 15:04 Completed CBC WITH ELECTRONIC DIFF [HEME] Stat Lab 11/09/18 15:04 Completed COMPREHENSIVE METABOLIC PANEL [CHEM] Stat Lab 11/09/18 15:04 Completed PROTIME WITH INR [COAG] Stat Lab 11/09/18 15:04 Completed PTT [COAG] Stat Lab 11/09/18 15:04 Completed TROPONIN T Stat Lab 11/09/18 15:04 Completed URINALYSIS W/POSS RFLX CULT [URINALYSIS] Stat Lab 11/09/18 18:10 Completed URINE DRUG SCREEN Stat Lab 11/09/18 18:10 Completed 0.9% Sodium Chloride Inj [Ns] 1,000 ml Med 11/09/18 14:33 Active IV 999 mls/hr Acyclovir [Zovirax] 635 mg Med 11/09/18 19:00 Active 0.9% Sodium Chloride Inj [Ns] 100 ml IV ONCE Acyclovir [Zovirax] 635 mg Med 11/09/18 18:15 Ordered 0.9% Sodium Chloride Inj [Ns] 100 ml IV Q8H Hydrocodone/APAP 5 mg/325 mg [[place]-5] Med 11/09/18 18:10 Discontinued 1 each PO NOW ONE EKG [EKG] Stat Ther 11/09/18 14:33 Draft Departure - Departure Date of Disposition Decision: 11/09/18 Time of Disposition Decision: 18:02 Certified Medical Emergency: Emergent - Critical Care Note This patient required my direct & personal management of CC.: No <Nevaeh Shepard - Last Filed: 11/09/18 19:01> <Shweta Terry - Last Filed: 11/09/18 19:35> - Departure DIAGNOSIS: Herpes zoster ophthalmicus of left eye, Left-sided weakness Disposition: ADMITTED INPATIENT 09 Condition: Serious Attestation - Physician/ ASH Attestation Patient care was provided by Advanced Practice Provider:: No The physician spent face to face time with patient:: Yes Advanced Practice Provider documentation review:: Supervising physician onsite and consulted in the evaluation and care of this patient. The physician did have a face to face encounter with the patient. <Nevaeh Shepard - Last Filed: 11/09/18 19:01> - NIH Stroke Scale Level of Consciousness: 0-Alert LOC Questions (ask month and age): 0-Answers Both Correctly Best Gaze (horizontal eye movement): 0-Normal Visual (use finger movement, counting or visual threat): 0-No Visual Loss Facial Palsy (show teeth or raise eyebrows & close eyes tght: 1-Minor Paralysis Motor Function-left arm: 1-Drift (5) Limb Ataxia(aowebe-dtzp-joteyp, or heel to forbes): 1-Present in one limb Best Language(name item/read sentence.Ex-Down to [place]): 1-Mild to Moderate Aphasia Dysarthria(Pt read words or say words Ex.Mama,Tip-Top,Thanks: 1-Mild-Mod Slurring Words NIH Total Score: 5 <Nevaeh Shepard - Last Filed: 11/09/18 19:01> This chart was documented by the indicated scribe, (Radha Malik, Sudhiribe) and accurately reflects the services I performed and decisions made by me, Nevaeh Shepard MD, as attested by the provider's signature.
[2018-11-09] MEDS ORDERED: NORCO-5 PO ONE (18:10)
--- NOTE | 2018-11-09 18:14 | EKG Report ---
Test Performed on : 11/09/2018 2:55:37 PM Test Reason : Stroke like symptoms Blood Pressure : / mmHG Vent. Rate : 092 BPM Atrial Rate : 092 BPM P-R Int : 106 ms QRS Dur : 068 ms QT Int : 364 ms P-R-T Axes : 015 081 081 degrees QTc Int : 450 ms Sinus rhythm. with short MO Otherwise normal ECG When compared with ECG of 14-OCT-2017 10:16, No significant change was found Unconfirmed Result
[2018-11-09 18:17] LABS: URINE SOURCE CLEAN CATCH
[2018-11-09 18:23] LABS: BILIRUBIN URINE NEGATIVE (NEGATIVE); BLOOD URINE NEGATIVE (NEGATIVE); COLOR YELLOW; GLUCOSE URINE 70 mg/dL (NEGATIVE); KETONE URINE NEGATIVE (NEGATIVE); LEUKOCYTES URINE NEGATIVE (NEGATIVE); NITRITE URINE NEGATIVE (NEGATIVE); PH URINE 6.5; PROTEIN URINE 30 mg/dL (NEGATIVE); SP GRAVITY URINE 1.023; TURBIDITY URINE CLEAR (CLEAR); UR EPITHELIAL CELLS <10 /HPF (<10); URINE BACTERIA NEGATIVE /HPF; URINE RBC <10 /HPF (<10); URINE WBC <10 /HPF (<10); UROBILINOGEN URINE 3 mg/dL (NORMAL)
[2018-11-09 18:42] LABS: UR AMPHETAMINES QUAL PRESUMPTIVE POSITIVE (NONE DETECT); UR BARBITUATES QUAL NONE DETECTED (NONE DETECT); UR BENZODIAZEPIN QUAL NONE DETECTED (NONE DETECT); UR CANNABINOIDS QUAL NONE DETECTED (NONE DETECT); UR COCAINE QUAL NONE DETECTED (NONE DETECT); UR METHADONE QUAL NONE DETECTED (NONE DETECT); UR OPIATES QUAL NONE DETECTED (NONE DETECT); UR OXYCODONE QUAL NONE DETECTED (NONE DETECT); UR PCP QUAL NONE DETECTED (NONE DETECT)
[2018-11-09] MEDS ORDERED: NS IV ONE (19:00)
[2018-11-09] MEDS ORDERED: ZOVIRAX IV ONE (19:00)
[2018-11-09] MEDS ORDERED: ASPIRIN PO ONE (20:30)
[2018-11-09] MEDS: NORCO-10 PO PRN (21:10)
--- NOTE | 2018-11-09 21:27 | HISTORY AND PHYSICAL ---
PRIMARY CARE PHYSICIAN: Dr. Nando Villanueva. CHIEF COMPLAINT: Stroke-like symptoms. HISTORY OF PRESENT ILLNESS: This is a 48-year-old male who comes in to the emergency room with the complaint of left-sided weakness, left-sided facial droop and slurring of speech as well as ataxia and mild difficulty standing and walking. The patient states he has been feeling disoriented since Monday. He admits to using alcohol yesterday. Denies any type of drug use. He does have a raised rash which appears zoster-like on the left side of his face. He also recently went to see his primary care provider to have his Klonopin and antidepressants restarted, related to anxiety and depression, and from what I understand, this happened. He had an NIH stroke score of around 5. CT scan was negative. The ER consulted with Dr. Patterson of Neurology, [facility], who recommended an MRI. MRI is not available at this time. Will order a CT angio to rule out a CVA related to vasculitis, and will admit the patient for further evaluation and treatment. PAST MEDICAL HISTORY: 1. Hypertension. 2. Depression and anxiety 3. Tobacco use. 4. Chronic pain syndrome. 5. COPD. 6. Hyperlipidemia. PREVIOUS SURGICAL HISTORY: 1. Tonsillectomy. 2. Skin grafting to arms and legs. FAMILY HISTORY: There was squamous cell carcinoma in his mother and hypertension in first-degree relatives. SOCIAL HISTORY: from his . They are trying to work things out. Smokes half a pack of cigarettes per day. States he uses alcohol occasionally and denies illicit drug use; however, his urine drug screen was presumptively positive for amphetamines. ALLERGIES: Toradol, Demerol and Tramadol, all causing unknown reactions, and penicillin, causing a rash. HOME MEDICATIONS: Albuterol rescue inhaler every 6 hours as needed, Klonopin 1 mg p.o. b.i.d. p.r.n., [place] 10 every 4-6 hours p.r.n., Effexor 150 mg p.o. daily. REVIEW OF SYSTEMS: A 14-point review of systems was conducted with the patient. Pertinent positives are listed above in the HPI. He also complained of itching to his left eye as well as a stinging pain to his left face. All other systems were reviewed and found to be negative. PHYSICAL EXAMINATION: VITAL SIGNS: Temperature 97.4, pulse 82, respirations 25, blood pressure 125/87, oxygen saturation 97% on room air. GENERAL: A 48-year-old male who seems somewhat lethargic, lying on the ER stretcher. Answers all questions appropriately. He is alert and oriented x3. HEENT: Atraumatic, normocephalic. Encephalitis of the left face with ptosed left eye, mild left- sided facial droop. Extraocular eye movements are intact. Pupils are equal, round and reactive to light. Sclerae are anicteric. Conjunctivae are pink. Oral mucosa is moist. NECK: Supple. No JVD. No thyromegaly. Trachea midline. No cervical lymphadenopathy. CARDIAC: S1 and S2 appreciated. No murmurs, gallops or rubs. LUNGS: Expiratory wheezing noted throughout the lung cason. Prolonged expiratory phase. No crepitations, no rhonchi. Symmetrical rise and fall with respirations. ABDOMEN: Soft, nondistended, nontender. Bowel sounds present in all 4 quadrants. Normoactive. No pulsatile mass. No organomegaly. EXTREMITIES: No clubbing, cyanosis, or edema, 2+ pedal pulses. INTEGUMENTARY: Dry and intact. Roundly zoster-appearing rash to left face with mild erythema and edema. GENITOURINARY: No bladder distention. Patient voids. MUSCULOSKELETAL: The left lower extremity has 2/5 to 3/5 strength, left upper extremity 2/5 to 3/5 strength, right upper and lower extremities 5/5 strength. Decreased mobility in the left upper and lower extremities. NEUROLOGIC: Alert and oriented x3. Mildly lethargic. Mild slurring of speech. Left-sided facial droop. The left eye is ptosed. Left palmar drift. Left oywcem-pw-fjbw was not able to be completed. No deviation of tongue noted. Positive Romberg test. Otherwise, cranial nerves appear to be intact. DIAGNOSTIC DATA: CT of the head without contrast: No acute intracranial process. Chest x-ray: No acute pathology. LABORATORY DATA: CBC within normal limits. Coags within normal limits. Sodium 136, potassium 4.4, chloride 96, carbon dioxide 25, BUN 14, creatinine 0.6, glucose 0.5. AST 40, ALT 46. Urine unremarkable. Toxicology screen presumptively positive for amphetamine. Serum alcohol 36. ASSESSMENT/PLAN: 1. Questionable cerebrovascular accident. It appears that possibly the patient has had a cerebrovascular accident. The CT scan was normal. Dr. Patterson from [facility] was consulted with by the ER, and he recommended an MRI. I do not believe that we have MRI available this weekend. We will get the MRI at this time, but will also order a CT angiogram of the head and neck to rule out possible cerebrovascular accident secondary to vasculitis, as it appears the patient does have herpes zoster. Will give aspirin 325 now and will check a direct lipid profile and start atorvastatin. This can be continued or discontinued based off the further findings by the primary team. Will continue aspirin treatment at this time daily as well. 2. 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 The patient was started on acyclovir. Will continue this. The patient has [place] 10 mg on his home medications. Will continue this for pain. 3. History of hypertension. The patient is normotensive at this time. Will continue to monitor. 4. History of chronic obstructive pulmonary disease. The patient does have mild expiratory wheezing. Will order p.r.n. albuterol treatment. Does not appear to be in acute exacerbation. 5. Questionable polysubstance abuse. The patient appears to have alcohol in his system. He does state that he drank some yesterday afternoon. Also appears to be positive for amphetamines, though he denies taking illicit drugs. He does use tobacco products. Smoking cessation was gone over with the patient. He states that he will need a NicoDerm patch. This will be added to his medication profile. 6. Further recommendations per patient's clinical course. Dictated by TIFFANIE Sheehan for Don Castellano MD cc: TIFFANIE Sheehan MD Neil Yeager, MD
--- NOTE | 2018-11-09 21:47 | Diag Imaging Result Doc PS360 ---
EXAM: CT ANGIOGRAM HEAD/NECK INDICATION: r/o cva secondary to vasculitis TECHNIQUE: This exam was performed using automated exposure control, adjustment of mA or kV according to patient size, and/or use of iterative reconstruction technique. Thin section axial images and 3-D MIPS were obtained. COMPARISON: None. FINDINGS: Head: The right vertebral artery is dominant. 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 The basilar artery is patent. There is trace atherosclerotic calcification involving the carotid siphons. There is no evidence of flow-limiting stenosis. There is no evidence of flow-limiting stenosis, vascular malformation, or cerebral aneurysm involving the arteries comprising the [place] including the anterior, middle, and posterior cerebral arteries. NECK: There is excessive motion artifact at the level of the hypopharynx, which obscures the carotid arteries at this point. Also, beam hardening artifact related to the contrast bolus in the subclavian vein obscures the proximal CCA on the right. There is mild atherosclerotic calcification at the left carotid bifurcation with only minimal luminal narrowing. There is no evidence of flow-limiting stenosis, vascular malformation, or aneurysm involving the visualized segments of the CCAs, ICAs, or ECAs. The right vertebral artery is congenitally dominant there is no evidence of flow-limiting stenosis, vascular malformation, dissection, or aneurysm involving the vertebral arteries, otherwise. IMPRESSION: Essentially unremarkable CTA of the head and neck as detailed above. Electronically signed by Kwame Malik 11/09/2018 9:44 PM
[2018-11-09] MEDS: NICODERM PATCH TD SCH (22:33)
[2018-11-10] MEDS: KLONOPIN PO PRN ×2 (00:24→09:19)
[2018-11-10] MEDS: NORCO-10 PO PRN ×3 (02:51→15:40)
[2018-11-10] MEDS: ZOVIRAX IV SCH ×3 (02:52→18:37)
[2018-11-10] MEDS: NS IV SCH ×3 (02:52→18:37)
[2018-11-10] MEDS ORDERED: ZOFRAN IV PRN (03:33)
[2018-11-10] MEDS ORDERED: ALBUTEROL NEB INH PRN (03:33)
[2018-11-10] MEDS: LIPITOR PO SCH ×2 (05:03→22:45)
[2018-11-10] MEDS: NS 1,000 ML IV SCH ×2 (05:03→17:43)
[2018-11-10] MEDS: LOVENOX SUBQ SCH (05:04)
[2018-11-10 07:54] LABS: BASO# 0.03 X1000 (0.0-0.2); BASO% 0.6 % (0.0-0.8); EOS# 0.15 X1000 (0.0-0.7); EOS% 2.8 % (0.0-10.0); HEMATOCRIT 39.5 % (42.0-52.0); HEMOGLOBIN 13.2 g/dL (14.0-18.0); LYMPH# 2.36 X1000 (1.2-3.4); LYMPH% 43.3 % (20.5-51.1); MCH 31.4 PG (27-31); MCHC 33.4 g/dL (33-37); MONO# 0.46 X1000 (0.11-0.59); MONO% 8.4 % (1.7-9.3); MPV 9.8 FL (7.4-10.4); NEUT# 2.45 X1000 (1.4-6.5); NEUT% 44.9 % (42.2-75.2); PLT 205 X1000 (130-400); WBC 5.45 X1000 (4.8-10.8)
--- NOTE | 2018-11-10 07:56 | HISTORY AND PHYSICAL ---
ADDENDUM REPORT: Patient seen and examined by myself. Full note dictated and discussed with nurse practitioner. Patient presented to the hospital with stroke-like symptoms. He currently is having left-sided facial weakness, left arm and left leg weakness. He also has herpes zoster ophthalmicus of left eye. We are going to admit him to the hospital to rule out a CVA. Treat him with acyclovir for herpes and use pain control. Further orders as needed. cc: Don Castellano MD
[2018-11-10 08:00] LABS: HEMOGLOBIN A1C 5.7 % (4.8-6.0)
[2018-11-10 08:12] LABS: AGAP 7; BUN 11 mg/dL (8-22); CALCIUM 7.7 mg/dL (8.8-10.2); CHLORIDE 103 mmol/L (98-107); COSMO 276; CREATININE 0.5 mg/dL (0.7-1.2); ESTIMATED GFR > 60; GLUCOSE 123 mg/dL (70-104); POTASSIUM 3.9 mmol/L (3.5-5.1); SODIUM 138 mmol/L (136-145); TCO2 28 mmol/L (25-35)
[2018-11-10] MEDS: NICODERM PATCH TD SCH (09:15)
[2018-11-10] MEDS: ASPIRIN PO SCH (09:15)
[2018-11-10] MEDS: EFFEXOR PO SCH (09:15)
--- NOTE | 2018-11-10 09:51 | PROGRESS NOTE ---
DATE: 11/10/2018 He is a patient of Dr. Yousuf Villanueva presented yesterday. 48-year-old came to the emergency room with complaints of left-sided weakness with left-sided facial droop, slurring of speech as well as ataxia, difficulty finding words. He appears to understand me very well. His left arm and left leg are weak. I do not appreciate facial asymmetry at this point. Left shoulder shrug is weak as well. Yesterday he was disoriented. He admits to using alcohol yesterday. Denied any other type of drug use. Appears to have zoster like left-sided rash. He is on Klonopin and antidepressant related to anxiety and depression. He had a stroke score of around [address] scan was negative. Dr. Patterson, Neurology in [place] recommended MRI, but the MRI was not available yesterday. CT was ordered, CT angiogram, wanted to rule out CVA related vasculitis. PAST MEDICAL HISTORY: 1. Hypertension. 2. Depression, anxiety. 3. Tobacco use. 4. Chronic pain syndrome. 5. COPD. 6. Hyperlipidemia. PREVIOUS SURGICAL HISTORY: 1. Tonsillectomy. 2. Skin grafting in arms and legs. ASSESSMENT AND PLAN: 1. Questionable cerebrovascular accident. Appears to be a right hemisphere event, left-sided weakness, but he is having speech issues as well, which would be on the left side. Dr. Patterson from [place] was consulted in the emergency and recommended MRI and I am not sure we will have MRI available this weekend. We did get a CT angiogram and it appears patient may have herpetic zoster. 2. 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 The patient was started on acyclovir. We will continue this, probably needs IV acyclovir. 3. Hypertension. 4. History of COPD with mild exacerbation on admission. 5. Questionable polysubstance abuse. Appears to have alcohol in his system. He is positive for amphetamines. LABORATORY DATA: Review of his lab is mild elevation of his transaminases. AST is 40, ALT is 46, albumin is 4.1. White count 5450, hematocrit 39, platelet count 205,000. ORDERS: He is on Lipitor 40 mg at bedtime, acyclovir IV getting 635 mg q.8, aspirin 325 mg a day, Klonopin 1 mg b.i.d. p.r.n., hydrocodone 10 mg p.o. q.4-6 hours as needed, nicotine patch 14 mg a day, normal saline at 75 mL an hour, Effexor 150 mg a day, aspirin 325 mg a day. cc: Tay Lerner MD
[2018-11-10] MEDS: VENTOLIN HFA INH PRN (15:36)
--- NOTE | 2018-11-10 18:41 | ECHO REPORT ---
ORDER DATE: 11/10/2018 ECHOCARDIOGRAPHIC MEASUREMENTS: 1. Interventricular septum 0.8. 2. Left ventricular posterior wall 0.9. 3. Diastolic diameter 4.3. 4. Left atrium 3.7. 5. Aorta 3.2. FINDINGS: 1. Mitral valve is normal. 2. Tricuspid valve is normal. 3. Pulmonic valve is normal. 4. Aortic valve leaflets are trileaflet. 5. Normal left ventricular cavity size. Estimated ejection fraction of 60%. There is mild mitral regurgitation. 6. Mild tricuspid regurgitation. Peak velocity across the tricuspid valve less than 2 m/sec. 7. Peak velocity across the aortic valve less than 2 m/sec by Doppler studies. There is no aortic stenosis or regurgitation. 8. There is no pericardial effusion, or obvious intracardiac mass or thrombus seen. cc: MD Jacky Osorio CRNP
[2018-11-11] MEDS: NS IV SCH ×3 (03:21→18:59)
[2018-11-11] MEDS: ZOVIRAX IV SCH ×3 (03:21→18:59)
[2018-11-11] MEDS: NS 1,000 ML IV SCH ×2 (03:28→09:24)
[2018-11-11] MEDS: LOVENOX SUBQ SCH (03:30)
[2018-11-11] MEDS: KLONOPIN PO PRN ×2 (03:34→13:37)
[2018-11-11] MEDS: NORCO-10 PO PRN ×4 (03:34→18:59)
[2018-11-11] MEDS: VENTOLIN HFA INH PRN ×2 (05:34→09:18)
--- NOTE | 2018-11-11 08:37 | PROGRESS NOTE ---
DATE: 11/11/2018 SUBJECTIVE: Mr. Herrera feels better. He did get a little bit of rest last night. He remains afebrile. OBJECTIVE: Vital Signs: Temperature 98.6 degrees, pulse 69, respirations 15. Lungs: Clear in all lung cason. Cardiovascular: Regular rhythm and rate without murmur or S3. Abdomen: Soft. Skin: Warm and dry. DIAGNOSTIC DATA: He had an echocardiogram done yesterday that showed normal left ventricular size, ejection fraction 60%, with mild tricuspid regurgitation. Otherwise, no significant valvular dysfunction. He had a head and neck CT without contrast, essentially unremarkable CTA of the head and neck. ASSESSMENT AND PLAN: 1. Questionable cerebrovascular accident with left-sided weakness. CT and CTA of the head and neck were unremarkable. Recommending an MRI, but we did a CTA instead. I do not know that we have access to MRI this weekend. 2. 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 He is on acyclovir. 3. Hypertension. 4. Chronic obstructive pulmonary disease, seems to be moving air well. 5. Questionable history of multi substance abuse. He had positive alcohol and positive for amphetamines. REVIEW OF ORDERS: He is on a nicotine patch. Lipitor 40 mg a day, acyclovir 635 mg IV q.8 hours, aspirin 325 mg a day, Effexor 150 mg a day p.o., Klonopin 1 mg p.o. b.i.d. p.r.n., and on low-dose Lovenox 40 mg subcutaneous daily. Getting hydrocodone 10 mg q.4-6 hours p.r.n. pain. cc: Tay Lerner MD
[2018-11-11] MEDS: ASPIRIN PO SCH (09:25)
[2018-11-11] MEDS: EFFEXOR PO SCH (09:25)
[2018-11-11] MEDS: NICODERM PATCH TD SCH (09:25)
[2018-11-11] MEDS: LIPITOR PO SCH (20:11)
[2018-11-12] MEDS: NORCO-10 PO PRN ×5 (00:54→23:33)
[2018-11-12] MEDS: KLONOPIN PO PRN ×2 (00:54→13:41)
[2018-11-12] MEDS: NS 1,000 ML IV SCH ×2 (00:55→23:35)
[2018-11-12] MEDS: ZOVIRAX IV SCH ×3 (04:11→23:32)
[2018-11-12] MEDS: NS IV SCH ×3 (04:11→23:32)
[2018-11-12] MEDS: LOVENOX SUBQ SCH (04:12)
[2018-11-12] MEDS: EFFEXOR PO SCH (09:20)
[2018-11-12] MEDS: ASPIRIN PO SCH (09:25)
[2018-11-12] MEDS: NICODERM PATCH TD SCH (09:25)
--- NOTE | 2018-11-12 09:53 | PROGRESS NOTE ---
DATE: 11/12/2018 SUBJECTIVE: He states he is feeling better. His left side is moving better. Speech, he does not feel is an issue. OBJECTIVE: Temperature is 98.1 degrees, pulse 70, respirations 20, blood pressure 127/82. Pupils are equal and round. No distended neck veins. Lungs are clear in all lung cason. Cardiovascular Examination: Regular rhythm and rate without murmur or S3. Abdomen is soft. Skin is warm and dry. Echocardiogram: Mitral valve was normal, tricuspid valve normal, pulmonic valve normal. Aortic valve leaflets were trileaflet. Normal left ventricular cavity size. Ejection fraction of 60%. Mild mitral regurgitation, mild tricuspid regurgitation. ASSESSMENT AND PLAN: 1. Questionable cerebrovascular accident with left-sided weakness. CTA of the head and neck unremarkable. They had recommended MRI. 2. 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 He is on acyclovir. 3. Hypertension. 4. Chronic obstructive pulmonary disease. He has no issues with breathing, air or gas exchange. 5. History of multisubstance abuse. 6. He seems to be doing better. MRI of the brain I think is ordered. He has normal saline going at 75 mL an hour. We will continue present orders. Possibly going home soon. cc: Tay Lerner MD
--- NOTE | 2018-11-12 09:57 | PROGRESS NOTE ---
DATE: 11/12/[address] Trujillo. He came in on 11/09/2018 with stroke-like symptoms. He complained of left-sided weakness, left-sided facial droop, slurring of speech, as well as difficulty with standing and walking. He had been feeling disoriented since Monday. Admits to using alcohol. Denies any type of drug use. He had a raised rash which appeared to be consistent with herpetic zoster on the left side of his face. Also recently went to his primary care physician to have his Klonopin and antidepressants restarted. He has anxiety and depression. In the emergency room in [place], neurology recommended an MRI. We did not have MRI available. Went ahead did a CT angiogram I think to rule out vasculitis. PAST MEDICAL HISTORY: 1. Hypertension. 2. Depression and anxiety. 3. Tobacco use. 4. Chronic pain syndrome. 5. COPD. 6. Hyperlipidemia. He does feel better. His left side seems to be doing better. No trouble with speech. His left face appears to be clear. OBJECTIVE: Temperature 98.1 degrees, pulse 71, respirations 20, blood pressure 127/82. Pupils are equal and round. Lungs are clear in all lung cason. Cardiovascular Examination: Regular rhythm and rate without murmur or S3. Urine output is 4000 mL. ASSESSMENT AND PLAN: 1. Questionable cerebrovascular accident. Had a CT and CTA of the head and neck which were unremarkable. 2. Herpetic zoster, left eye. He is on acyclovir intravenously. Switch him to oral. 3. Hypertension. 4. Chronic obstructive pulmonary disease. 5. Questionable history of multisubstance abuse. Looking at his toxicology, it was positive for amphetamines. cc: Tay Lerner MD
--- NOTE | 2018-11-12 10:15 | Diag Imaging Result Doc PS360 ---
EXAM: MRI BRAIN W/WO CONTRAST 11/10/2018 HISTORY: stroke TECHNIQUE: T1 sagittal, axial and post gadolinium-enhanced axial with coronal reformation, T2, DWI, flair axial and coronal gradient echo. COMMENT: There is no evidence of mass effect, bleed, or abnormal extra-axial fluid collection. There is no evidence of restricted diffusion. No abnormal gadolinium enhancement is present. IMPRESSION: No evidence of acute intracranial disease. Electronically signed by Leonel Funes 11/12/2018 10:13 AM
[2018-11-12] MEDS: VENTOLIN HFA INH PRN (10:29)
[2018-11-12] MEDS: LIPITOR PO SCH (23:35)
[2018-11-13] MEDS: KLONOPIN PO PRN ×2 (02:03→13:33)
[2018-11-13] MEDS: LOVENOX SUBQ SCH (03:09)
[2018-11-13] MEDS: NORCO-10 PO PRN ×3 (05:00→15:20)
[2018-11-13] MEDS: ZOVIRAX IV SCH (08:50)
[2018-11-13] MEDS: NS IV SCH (08:50)
[2018-11-13] MEDS: NICODERM PATCH TD SCH (08:51)
[2018-11-13] MEDS: EFFEXOR PO SCH (08:51)
[2018-11-13] MEDS: ASPIRIN PO SCH (08:51)
[2018-11-13] MEDS: VENTOLIN HFA INH PRN (09:33)
[2018-11-13 12:01] VITALS: BP 148/90
[2018-11-13] MEDS: NS 1,000 ML IV SCH (15:00)
--- NOTE | 2018-11-14 13:47 | DISCHARGE SUMMARY ---
ADMISSION DATE: 11/09/2018 DISCHARGE DATE: 11/13/2018 CONSULTATION DURING THIS ADMISSION: None. INVASIVE PROCEDURES DONE DURING THIS ADMISSION: None. IMAGING STUDIES OF SIGNIFICANCE: 1. A CT scan of the head without contrast was unremarkable. 2. A chest x-ray showed no evidence of acute pathology. 3. Head and neck showed essentially unremarkable CTA. 4. A brain MRI showed no evidence of acute intracranial pathology. 5. Echocardiogram showed an ejection fraction of 60%, mild mitral regurgitation. ADMISSION DIAGNOSES: 1. Questionable cerebrovascular accident. 2. 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 3. History of hypertension. 4. Questionable polysubstance abuse. DISCHARGE DIAGNOSES: 1. Transient ischemic attack versus complex migraine. 2. Recurrent headaches concerning for migraine attacks. 3. Shingles over the left eye. 4. History of chronic obstructive pulmonary disease, with ongoing tobacco use and abuse. 5. Polysubstance abuse. DISCHARGE MEDICATIONS: 1. Clonazepam 1 mg b.i.d. 2. Albuterol. 3. Effexor 150 mg p.o. b.i.d. 4. Furosemide 1 tablet q.4h. p.r.n. 5. Gabapentin 300 p.o. b.i.d. PRESENTING COMPLAINT: Stroke-like symptoms. HISTORY OF PRESENT COMPLAINT: Mr. Herrera is a 48-year-old male, with a history of tobacco use, chronic pain, COPD, and hypertension, who came into the emergency department because of left-sided weakness, left-sided facial droop and slurred speech. The patient was evaluated and was also found to have some rash over the forehead, which was suspicious for zoster-like lesions. Consultation was held in the ER with Dr. Patterson of Neurology at [facility], who recommended MRI. The patient was therefore admitted over here for stroke workup. A CTA of the head and an MRI was subsequently done, which were unremarkable. The patient seems to have recovered very well from the neurological deficit that he presented with. We are not 100% sure if he was a TIA or a complex migraine. Mr. Herrera also complained of intermittent recurrent headaches associated with some nauseation, photophobia and phonophobia, which we think could be related with migraine. He has been started on Fioricet and gabapentin for both possible migraine and also for postherpetic neuralgia. Mr. Herrera is advised to follow up with Neurology ([place]). At the time of the discharge, Mr. Herrera refers to be doing a lot better. Vitals: Blood pressure is 148/90, pulse of 82, respirations 18, temperature 98.0 degrees. He is saturating 98% on room air. He is completely asymptomatic. There is no neurologic deficit at the time of the discharge. All the discharge instructions including tobacco cessation and recreational drug use cessation have all been discussed extensively with Mr. Herrera and he voiced understanding. TIME SPENT: Time spent for discharge is 45 minutes. cc: Kolby Ramirez MD
== END 2018-11-13 15:50 | disposition home or self-care (01) | DRG 103 ==
LOC: ED 14:13 → SUATTDRO 22:53 → 3N 22:53
PROVIDERS: ATTEND Internal Medicine

== ENCOUNTER 2019-02-01 18:15 | Inpatient (IN) ==
[2019-02-01] MEDS ORDERED: DUONEB (A & A) INH ONE (18:28)
--- NOTE | 2019-02-01 18:36 | PROVIDER DOCUMENTATION ---
HPI-Respiratory General - General Chief Complaint: Shortness of Breath Stated Complaint: SOB/LEFT ARM PAIN Time Seen by Provider: 02/01/19 18:23 Source: patient Allergies/Adverse Reactions: Patient Allergies Allergy/AdvReac Type Severity Reaction Status Date / Time ketorolac tromethamine * Allergy Unknown Verified 02/01/19 19:41 [From Toradol] meperidine HCl * Allergy Unknown Verified 02/01/19 19:41 [From Demerol] Penicillins Allergy RASH Verified 02/01/19 19:41 tramadol AdvReac Unknown Verified 02/01/19 19:41 Home Medications: Home Medication List Medication Instructions Recorded Confirmed Last Taken Type Clonazepam [Klonopin] 1 mg PO BID PRN PRN 10/14/17 02/01/19 Unknown History Venlafaxine [Effexor] 150 mg PO DAILY 11/09/18 02/01/19 Unknown History - History of Present Illness-Resp Nature of Presenting Problem: 48 YOF PRESENTS WITH C/O SOB,PRODUCTIVE COUGH X 10 DAYS GETTING WORSE, ALSO REPORTS L ARM NUMMBNESS (WEAKNESS IS RESIDUAL FROM PREVIOUS CVA NOT INCREASED PER HIS REPORT. HE IS SOB ON EXAM. HE DENIES CP, N/V/D Quality of Pain: reports: none Severity in ED: reports: severe Onset/Duration: reports: other (10 DAYS) Timing: reports: still present, getting worse Cough Quality/Degree: reports: moderate, productive cough Current Respiratory Medication Therapy: Initiated none Modifying Factors: worse with: exertion, coughing Associated Symptoms: reports: cough, shortness of breath, short of breath Similar Symptoms Previously?: Yes Recently seen or treated by another doctor?: No Review of Systems - Adult - REVIEW OF SYSTEMS - ADULT Constitutional: reports: no symptoms reported. denies: see HPI, chills, fever, fatique, night sweats, weight gain, weight loss, other Eyes: reports: no symptoms reported. denies: see HPI, discharge, dry eyes, decreased vision, blurred vision, double vision, eye pain, redness, other Ears, Nose, Mouth & Throat: reports: no symptoms reported. denies: see HPI, ear discharge, ear pain, hearing loss, tinnitus, epistaxis, sinus problem, nose p ain, loose teeth, mouth/dental pain, mouth swelling, hoarseness, throat pain, throat swelling, other Cardiovascular: reports: no symptoms reported. denies: see HPI, chest pain, edema, heart murmur, irregular heart rate, orthopnea, palpitations, poor circulation, PND, syncope, other Respiratory: reports: see HPI, cough, excessive sputum production, shortness of breath, wheezing. denies: no symptoms reported, chronic cough, dyspnea on exertion, hemoptysis, pleurisy, other Gastrointestinal: reports: no symptoms reported. denies: see HPI, abdominal pain, hematemesis, constipation, diarrhea, difficulty swallowing, frequent heartburn, nausea, poor appetite, rectal bleeding, vomiting, other Genitourinary: reports: no symptoms reported. denies: see HPI, dysuria, discharge, frequency, flank pain, frequent UTI's, hematuria, hesitency, incontinence, urinary retention, urgency, other Musculoskeletal: reports: no symptoms reported. denies: see HPI, bone pain, back pain, frequent leg cramps, joint pain, joint swelling, muscle aches, muscle weakness, neck pain, other Integumentary: reports: no symptoms reported. denies: see HPI, hives, hair loss, itching, mole changes, nail changes, rash, skin sores/ulcer, skin thickening, other Neurological: reports: see HPI, numbness (LA RM), other (RESIDUAL WEAKNESS ON L SIDE). denies: no symptoms reported, ataxia, dizziness/vertigo, headache/migraines, loss of balance, paresthesia, seizure, slurred speech, syncope, tremors Psychiatric: reports: no symptoms reported. denies: see HPI, anxiety, anti- depressant use, alcohol/drug dependence, depression, emotional problems, insomnia, panic attacks, suicidal thoughts, other Endocrine: reports: no symptoms reported. denies: see HPI, change in skin pigment, excessive sweating, goiter, cold intolerance, heat intolerance, i ncreased hunger, increased thirst, polyuria, other Hematologic/Lymphatic: reports: no symptoms reported. denies: see HPI, blood clots, easy bruising, low blood count, lymphedema, prolonged bleeding, swollen lymph nodes, transfusions, other Allergic/Immunologic: reports: no symptoms reported. denies: see HPI, allergic reactions, allergic rhinitis, asthma, eczema, food allergy, frequent infections, hay fever, hives, positive PPD, urticaria, other Past History - Adult - PAST MEDICAL HISTORY-ADULT Review of Records: reports: Nursing Assessment Review, Social history reviewed & non-contributory. Major Childhood Illnesses: reports: denies history Cardiovascular: reports: HTN, hyperlipidemia Respiratory: reports: COPD Gastrointestinal: reports: denies history Obstetrical/Gynecological: reports: denies history Genitourinary: reports: denies history Musculoskeletal: reports: chronic pain Neurological: reports: denies history Psychiatric: reports: anxiety, depression Endocrine/Immune: reports: denies history Other Conditions: reports: denies history - PRIOR SURGERIES/PROCEDURES Surgical/Procedure History: reports: tonsillectomy, back/neck - IMMUNIZATION STATUS Childhood Immunizations: See Nurse Assessment Flu Vaccine: See Nurse Assessment - FAMILY HISTORY Family History: reviewed, not pertinent Physical Exam-General - PHYSICAL EXAM-ADULT Initial Vital Signs Reviewed: Yes - CONSTITUTIONAL General Appearance: alert, moderate distress - EYES Eyes: PERRL/EOMI, pink conjunctivae - HEAD, EARS, NOSE, MOUTH & THROAT HENMT: normocephalic/atraumatic, moist mucous membranes, normal ENT inspection - NECK Neck: non-tender, full range of motion, supple - RESPIRATORY Respiratory: chest non-tender, respiratory distress, rhonchi, wheezing - CARDIOVASCULAR Cardiovascular: normal peripheral pulses, no edema, no gallop, no JVD, tachycardia - GASTROINTESTINAL (ABDOMEN) Abdominal Exam: normal bowel sounds, non tender, soft, no organomegaly, no pulsatile mass - LYMPHATIC Lymphatic: no adenopathy - MUSCULOSKELETAL Back Exam: normal inspection, no CVA tenderness, no vertebral tenderness Extremity: normal range of motion, non-tender, normal gait Peripheral Pulses: radial (R): 2+, radial (L): 2+ - SKIN Integumentary: normal color, normal turgor, warm/dry - NEUROLOGIC Neurologic: motor weakness (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 negative: aphasia - PSYCHIATRIC Psych/Mental Status: oriented x 3, disheveled Progress - PLAN OF CARE/RESULTS Progress/Plan/Lab Results: Laboratory Results - last 24 hr 02/01/19 02/01/19 02/01/19 18:26 18:40 18:40 WBC 18.95 H RBC 4.86 Hgb 14.9 Hct 44.9 MCV 92.4 MCH 30.7 MCHC 33.2 RDW Std Deviation 12.9 Plt Count 200 MPV 9.6 Immature Gran % (Auto) 0.5 Neut % (Auto) 80.1 H Lymph % (Auto) 10.0 L [place] % (Auto) 9.1 Eos % (Auto) 0.0 Baso % (Auto) 0.3 Immature Gran # (Auto) 0.10 H Neut # (Auto) 15.19 H Lymph # (Auto) 1.89 [place] # (Auto) 1.72 H Eos # (Auto) 0.00 Baso # (Auto) 0.05 Segmented Neutrophils 76 H Band Neutrophils 3 H Lymphocytes 12 L Monocytes 7 Atypical Lymphocytes 2.0 Hypochromia OCCASIONAL PT INR PTT (Actin FS) Specimen Type ARTERIAL Sample Site L RADIAL pH 7.55 H pCO2 30 L pO2 61 HCO3 28.3 H Base Excess 4.6 H Oxyhemoglobin 91.4 L ABG O2 Sat (Calculated) 20.3 ABG O2 Saturation 94.8 L ABG Carboxyhemoglobin 2.40 ABG Methemoglobin 1.1 Tya Test YES A-a O2 Difference 51.0 Total Hemoglobin 15.8 Lactate 1.00 Blood Gas Modality ROOM AIR FiO2 % 21.0 Sodium 132 L Potassium 3.6 Chloride 94 L Carbon Dioxide 23 L Anion Gap 15 BUN 7 L Creatinine 0.6 L Estimated GFR/1.73 m2 > 60 BUN/Creatinine Ratio 12 Glucose 128 H Calculated Osmolality 264 Calcium 8.7 L Total Bilirubin 0.60 AST 15 ALT 14 Alkaline Phosphatase 54 Creatine Kinase 63 Troponin T Total Protein 7.5 Albumin 3.9 Globulin 4.0 Albumin/Globulin Ratio 1.0 Plasma Lactate Urine Source Urine Color Urine Turbidity Urine pH Ur Specific [place] Urine Protein Ur Glucose (Stick) Ur Ketones (Stick) Urine Blood Urine Nitrite Urine Bilirubin Urobilinogen Dipstick Urine Leukocytes Urine WBC (Auto) Urine RBC (Auto) U Epithel Cells (Auto) Urine Bacteria (Auto) Urine Crystals Small Round Cells Urine Casts Urine Yeast-like Cells Urine Opiates Screen Ur Oxycodone Screen Urine Methadone Screen U Propoxyphene Qual Ur Barbituates Screen Ur Tricyclics Screen Ur Phencyclidine Scrn Ur Amphetamines Screen U Methamphetamines Scrn U Benzodiazepines Scrn Urine Cocaine Screen U Cannabinoids Screen Influenza A (Rapid) Influenza B (Rapid) 02/01/19 02/01/19 02/01/19 18:40 18:40 18:40 WBC RBC Hgb Hct MCV MCH MCHC RDW Std Deviation Plt Count MPV Immature Gran % (Auto) Neut % (Auto) Lymph % (Auto) [place] % (Auto) Eos % (Auto) Baso % (Auto) Immature Gran # (Auto) Neut # (Auto) Lymph # (Auto) [place] # (Auto) Eos # (Auto) Baso # (Auto) Segmented Neutrophils Band Neutrophils Lymphocytes Monocytes Atypical Lymphocytes Hypochromia PT INR PTT (Actin FS) Specimen Type Sample Site pH pCO2 pO2 HCO3 Base Excess Oxyhemoglobin ABG O2 Sat (Calculated) ABG O2 Saturation ABG Carboxyhemoglobin ABG Methemoglobin Tay Test A-a O2 Difference Total Hemoglobin Lactate Blood Gas Modality FiO2 % Sodium Potassium Chloride Carbon Dioxide Anion Gap BUN Creatinine Estimated GFR/1.73 m2 BUN/Creatinine Ratio Glucose Calculated Osmolality Calcium Total Bilirubin AST ALT Alkaline Phosphatase Creatine Kinase Troponin T < 0.010 Total Protein Albumin Globulin Albumin/Globulin Ratio Plasma Lactate 1.1 Urine Source Urine Color Urine Turbidity Urine pH Ur Specific [place] Urine Protein Ur Glucose (Stick) Ur Ketones (Stick) Urine Blood Urine Nitrite Urine Bilirubin Urobilinogen Dipstick Urine Leukocytes Urine WBC (Auto) Urine RBC (Auto) U Epithel Cells (Auto) Urine Bacteria (Auto) Urine Crystals Small Round Cells Urine Casts Urine Yeast-like Cells Urine Opiates Screen Ur Oxycodone Screen Urine Methadone Screen U Propoxyphene Qual Ur Barbituates Screen Ur Tricyclics Screen Ur Phencyclidine Scrn Ur Amphetamines Screen U Methamphetamines Scrn U Benzodiazepines Scrn Urine Cocaine Screen U Cannabinoids Screen Influenza A (Rapid) NEGATIVE Influenza B (Rapid) NEGATIVE 02/01/19 02/01/19 02/01/19 18:40 20:24 20:24 WBC RBC Hgb Hct MCV MCH MCHC RDW Std Deviation Plt Count MPV Immature Gran % (Auto) Neut % (Auto) Lymph % (Auto) [place] % (Auto) Eos % (Auto) Baso % (Auto) Immature Gran # (Auto) Neut # (Auto) Lymph # (Auto) [place] # (Auto) Eos # (Auto) Baso # (Auto) Segmented Neutrophils Band Neutrophils Lymphocytes Monocytes Atypical Lymphocytes Hypochromia PT 14.4 INR 1.06 PTT (Actin FS) 38.0 Specimen Type Sample Site pH pCO2 pO2 HCO3 Base Excess Oxyhemoglobin ABG O2 Sat (Calculated) ABG O2 Saturation ABG Carboxyhemoglobin ABG Methemoglobin Tay Test A-a O2 Difference Total Hemoglobin Lactate Blood Gas Modality FiO2 % Sodium Potassium Chloride Carbon Dioxide Anion Gap BUN Creatinine Estimated GFR/1.73 m2 BUN/Creatinine Ratio Glucose Calculated Osmolality Calcium Total Bilirubin AST ALT Alkaline Phosphatase Creatine Kinase Troponin T Total Protein Albumin Globulin Albumin/Globulin Ratio Plasma Lactate Urine Source CLEAN CATCH Urine Color YELLOW Urine Turbidity CLEAR Urine pH 7.0 Ur Specific [place] 1.022 Urine Protein 100 A Ur Glucose (Stick) NEGATIVE Ur Ketones (Stick) 80 A Urine Blood NEGATIVE Urine Nitrite NEGATIVE Urine Bilirubin NEGATIVE Urobilinogen Dipstick 4 A Urine Leukocytes NEGATIVE Urine WBC (Auto) <10 Urine RBC (Auto) 10-20 A U Epithel Cells (Auto) <10 Urine Bacteria (Auto) 1+ Urine Crystals NONE SEEN Small Round Cells NONE SEEN Urine Casts NONE SEEN Urine Yeast-like Cells NONE SEEN Urine Opiates Screen NONE DETECTED Ur Oxycodone Screen NONE DETECTED Urine Methadone Screen NONE DETECTED U Propoxyphene Qual NONE DETECTED Ur Barbituates Screen NONE DETECTED Ur Tricyclics Screen NONE DETECTED Ur Phencyclidine Scrn NONE DETECTED Ur Amphetamines Screen NONE DETECTED U Methamphetamines Scrn NONE DETECTED U Benzodiazepines Scrn PRESUMPTIVE POSITIVE A Urine Cocaine Screen NONE DETECTED U Cannabinoids Screen NONE DETECTED Influenza A (Rapid) Influenza B (Rapid) Orders Category Date Time Status Admit - [facility] Routine AdmDCTranf 02/01/19 20:30 Active Activity - Bed Rest with BRP ORDERED Care 02/01/19 22:08 Active Cardiac Monitoring DIRECTED Care 02/01/19 18:25 Completed IV Insertion ORDERED Care 02/01/19 18:42 Completed Intake and Output-Strict ORDERED Care 02/01/19 22:08 Active Notify MD of + Sepsis Screen NOW Care 02/01/19 18:42 Completed Notify Physician As Ordered Care 02/01/19 18:42 Completed Vital Signs Order Q 4-HR ASSESS Care 02/01/19 22:08 Completed Z-Document. for Tele Applied ORDERED Care 02/01/19 22:08 Completed Heart Healthy Diet Diet 02/01/19 22:08 Active CHEST-PORTABLE [RAD] Stat Exams 02/01/19 18:[address] HEAD W/O CONTRAST [CT] Stat Exams 02/01/19 18:30 Completed ABG [RESP] Routine Lab 02/01/19 18:26 Completed BASIC METABOLIC PANEL [CHEM] Routine Lab 02/02/19 05:02 Completed BLOOD CULTURE [BLDCUL] Stat Lab 02/01/19 18:40 Results CBC WITH DIFF [HEME] Routine Lab 02/02/19 05:02 Completed CBC WITH DIFF [HEME] Stat Lab 02/01/19 18:40 Completed CK PROFILE [SP CHEM] Stat Lab 02/01/19 18:40 Completed COMPREHENSIVE METABOLIC PANEL [CHEM] Stat Lab 02/01/19 18:40 Completed Flu [INFLUENZA SCREEN PL] Stat Lab 02/01/19 18:40 Completed LACTATE, PLASMA [CHEM] Lab 02/01/19 23:20 Completed LACTATE, PLASMA [CHEM] Q3H Lab 02/01/19 18:40 Completed PROTIME WITH INR [COAG] Stat Lab 02/01/19 18:40 Completed PTT [COAG] Stat Lab 02/01/19 18:40 Completed TROPONIN T Stat Lab 02/01/19 18:40 Completed URINALYSIS W/POSS RFLX CULT [URINALYSIS] Stat Lab 02/01/19 20:24 Com[address]INE DRUG SCREEN [address] Stat Lab 02/01/19 20:24 Completed URINE MANUAL MICROSCOPIC [URINALYSIS] Stat Lab 02/01/19 20:24 Completed 0.9% Sodium Chloride Inj [Ns] 1,000 ml Med 02/01/19 22:08 Active IV 75 mls/hr 0.9% Sodium Chloride Inj [Ns] 1,000 ml Med 02/01/19 20:23 Discontinued IV 999 mls/hr 0.9% Sodium Chloride Inj [Ns] 1,000 ml Med 02/01/19 20:32 Discontinued IV 999 mls/hr Acetaminophen [Tylenol] Med 02/01/19 19:45 Discontinued 1,000 mg PO NOW ONE Acetaminophen [Tylenol] Med 02/01/19 22:08 Active 650 mg PO Q6H PRN PRN Albuterol 0.5% INH Conc [Albuterol 0.5% INH Conc For Med 02/01/19 20:42 Discontinued Hyperkalemia] 5 mg .ROUTE .STK-MED ONE Albuterol 2.5MG/Ipratrop 0.5MG [Duoneb (A & A)] Med 02/01/19 18:28 Discontinued 3 ml INH NOW ONE Albuterol 2.5MG/Ipratrop 0.5MG [Duoneb (A & A)] Med 02/01/19 22:08 Active 3 ml INH RTQ6H Albuterol [Albuterol Neb] Med 02/01/19 19:24 Discontinued 2.5 mg INH NOW ONE Bupropion X.l. [Wellbutrin Xl] Med 02/02/19 09:00 Active 150 mg PO DAILY Clonazepam [Klonopin] Med 02/01/19 22:08 Active 1 mg PO BID PRN PRN Enoxaparin [Lovenox] Med 02/01/19 22:08 Active 40 mg SUBQ Q24H Levofloxacin 500 mg/D5w [Levaquin 500 mg/D5w] Med 02/01/19 19:02 Discontinued 500 mg in 100 ml IV NOW Levofloxacin 750 mg/D5w [Levaquin 750 mg/D5w] Med 02/02/19 14:00 Active 750 mg in 150 ml IV Q24H Lorazepam [Ativan] Med 02/01/19 20:46 Discontinued 1 mg IV NOW ONE Methylprednisolone Sod Succ [Solu-Medrol] Med 02/01/19 19:22 Discontinued 125 mg IV NOW ONE Morphine Med 02/01/19 22:08 Active 2 mg IV Q3H PRN PRN Ondansetron [Zofran] Med 02/01/19 22:08 Active 4 mg IV Q4H PRN PRN Aerosol Treatments Routine Oth 02/01/19 18:28 Completed Aerosol Treatments Routine Oth 02/01/19 19:24 Completed Aerosol Treatments Routine Oth 02/01/19 22:08 Completed Aerosol Treatments Stat Oth 02/01/19 18:28 Completed Aerosol Treatments Stat Oth 02/01/19 19:24 Completed Aerosol Treatments Stat Oth 02/01/19 22:08 Completed BIPAP Stat Oth 02/01/19 20:24 Completed Oxygen Device Stat Oth 02/01/19 18:25 Completed Telemetry [OM.EQ] Routine Oth 02/01/19 22:08 Active EKG [EKG] Stat Ther 02/01/19 18:24 Draft Transfer/Admit Order [TRANSFER] Routine Transfer 02/01/19 20:30 Completed 4: DR PURCELL HAS SEEN THE PATIENT AND RECOMMENDS HOUR LONG NEB AND STEROIDS. 2020: D/W DR PURCELL RESP STATUS NOT IMPROVING. HE IS IN AGREEMENT WITH BIPAP (ORDERED) Result Diagrams: 02/02/19 05:02 02/02/19 05:02 - REASSESSMENT Reassessment #1 Time Reassessed: 19:24 (NO CHANGE WITH NEB) Status: unchanged Reassessment #2 Time Reassessed: 20:25 (NO IMPROVEMENT WITH TXS, SEE NEW ORDERS) Status: worsening Reassessment #3 Time Reassessed: 20:51 (DR JAZZY SHINE BACK TO BEDSIDE, INITIATING BIPAP PT NOT TOLERATING, 1MG ATIVAN ORDERED) Status: unchanged - EKG 1 Time of EKG reading by physician:: 18:40 EKG Read and Signed by:: Tommy Enciso EKG Interpretation (*Must complete 3 of following elements*): Abnormal Rate: 122 Rhythm: ST [place]: normal QRS: normal [place] Interval: normal ST Wave: non-specific ST changes (Q PRESENT IN V1 AND 2) Prior EKG Comparison: changes noted - XRAY 1 XRAY Study: Chest Impression: See EMR Report (EXAM: CHEST-PORTABLE - 02/01/2019 HISTORY: SOB TECHNIQUE: Portable chest COMPARISON: 11/09/2018 FINDINGS: Heart size is normal. There are calcified hilar and mediastinal lymph nodes from old granulomatous disease similar to prior. There is mild prominence of infrahilar markings, but the may be exaggerated by the lordotic projection. There is apparent small infiltrate at the lateral left base. There is no pleural effusion or pneumothorax identified. IMPRESSION: Mild prominence of infrahilar markings. Apparent small infiltrate at lateral left base. Electronically signed by Buck Ramires 02/01/2019 7:33 PM 02/01/191932 Interpreting Physician: Buck Ramires MD Dictated Date/Time: 02/01/191929 cc: Clementina Shine; None,PCP) - CT/MRI 1 CT Study: Head Impression: See EMR Report (EXAM: CT HEAD W/O CONTRAST - 02/01/2019 HISTORY: L SIDE WEAKNESS TECHNIQUE: CT head without contrast COMPARISON: 12/25/2018 FINDINGS: There is no evidence of intracranial hemorrhage, mass effect, midline shift, or hydrocephalus. There is no evidence of infarct, although acute infarcts may not be immediately visible. There is no evidence of skull fracture. 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 Visualized portions of paranasal sinuses and mastoid air cells appear clear except for slight mucosal thickening at the right maxillary sinus. IMPRESSION: No visible acute intracranial abnormality. No hemorrhage or mass effect. This exam was performed using automated exposure control, adjustment of mA or kV according to patient size, and/or use of iterative reconstruction technique. Electronically signed by Buck Ramires 02/01/2019 7:29 PM 02/01/191928 Interpreting Physician: Buck Ramires MD Dictated Date/Time: 02/01/191925 cc: Clementina Shine; None,PCP) - CONSULTS/PCP/HOSPITALIST Notification #1 *Consult/PCP/Hospitalist*: DR ZAVALA Time Discussed: 20:33 Reason/Comments: PVC AT DG Consult Disposition: Admit Departure - Departure Date of Disposition Decision: 02/01/19 Time of Disposition Decision: 20:34 DIAGNOSIS: Left-sided weakness, PNA (pneumonia), COPD (chronic obstructive pulmonary disease), COPD with exacerbation, Respiratory distress Disposition: ADMITTED INPATIENT 09 Certified Medical Emergency: Emergent Condition: Fair - Critical Care Note This patient required my direct & personal management of CC.: Yes Total Time (mins): 32 Critical Care Statement: This patient required my direct personal management to treat or rule out processes, the absence of which, could potentiallly result in sudden, clinically significant life or limb threatening deterioration. Attestation - Physician/ ASH Attestation Patient care was provided by Advanced Practice Provider:: Yes Advanced Practice Provider:: Clementina Shine Advanced Practice Provider documentation review:: The Mid-level provider documentation, treatment plan and medical decision making was reviewed by the physician who agrees with all treatment and medical decision making by the P. The physician spent face to face time with patient:: Yes Advanced Practice Provider documentation review:: Supervising physician onsite and consulted in the evaluation and care of this patient. The physician did have a face to face encounter with the patient.
[2019-02-01 18:50] LABS: BE 4.6 mmoll (-3.0-3.0); BLOOD TYPE ARTERIAL; HCO3-(ACT) 28.3 mmoll (20.0-26.0); METHB 1.1 % (0.0-1.5); O2(CT) 20.3 mL/dL (15.0-23.0); O2HB 91.4 % (95.0-99.0); PCO2(98.6) 30 mmHg (35-45); PO2(98.6) 61 mmHg (60-100); SAMPLE BLOOD; SAO2 94.8 % (95.0-100.0); THB 15.8 g/dL (11.5-17.4); pH(98.6) 7.55 (7.35-7.45)
[2019-02-01 18:53] LABS: ALLEN TEST YES; MODALITY ROOM AIR
[2019-02-01 18:58] LABS: BASO# 0.05 X1000 (0.0-0.2); BASO% 0.3 % (0.0-0.8); HEMATOCRIT 44.9 % (42.0-52.0); HEMOGLOBIN 14.9 g/dL (14.0-18.0); IMM GRAN% 0.5 % (0.0-0.5); LYMPH# 1.89 X1000 (1.2-3.4); MCH 30.7 PG (27-31); MCHC 33.2 g/dL (33-37); MCV 92.4 FL (81-99); MONO# 1.72 X1000 (0.11-0.59); MONO% 9.1 % (1.7-9.3); MPV 9.6 FL (7.4-10.4); NEUT# 15.19 X1000 (1.4-6.5); NEUT% 80.1 % (42.2-75.2); PLT 200 X1000 (130-400); RBC 4.86 XMIL (4.7-6.1); RDW 12.9 % (11.5-14.5); WBC 18.95 X1000 (4.8-10.8)
[2019-02-01] MEDS ORDERED: LEVAQUIN 500 MG/D5W 500 MG/100 ML IVPB IV ONE (19:02)
[2019-02-01 19:14] LABS: INFLUENZA A NEGATIVE (NEGATIVE); INFLUENZA B NEGATIVE (NEGATIVE)
[2019-02-01 19:17] LABS: INR 1.06; PROTIME 14.4 Seconds (11.0-16.0)
[2019-02-01] MEDS ORDERED: SOLU-MEDROL IV ONE (19:22)
[2019-02-01 19:24] LABS: AGAP 15; ALBUMIN 3.9 g/dL (3.5-5.0); ALKALINE PHOSPHATASE 54 U/L (32-122); BUN 7 mg/dL (8-22); CALCIUM 8.7 mg/dL (8.8-10.2); CHLORIDE 94 mmol/L (98-107); CK PROFILE 63 U/L (24-204); COSMO 264; CREATININE 0.6 mg/dL (0.7-1.2); ESTIMATED GFR > 60; GLUCOSE 128 mg/dL (70-104); GOT 15 U/L (10-34); GPT 14 U/L (10-44); POTASSIUM 3.6 mmol/L (3.5-5.1); SODIUM 132 mmol/L (136-145); TCO2 23 mmol/L (25-35); TOTAL PROTEIN 7.5 g/dL (6.3-8.3)
[2019-02-01] MEDS ORDERED: ALBUTEROL NEB INH ONE (19:24)
--- NOTE | 2019-02-01 19:32 | Diag Imaging Result Doc PS360 ---
EXAM: CT HEAD W/O CONTRAST - 02/01/2019 HISTORY: L SIDE WEAKNESS TECHNIQUE: CT head without contrast COMPARISON: 12/25/2018 FINDINGS: There is no evidence of intracranial hemorrhage, mass effect, midline shift, or hydrocephalus. There is no evidence of infarct, although acute infarcts may not be immediately visible. There is no evidence of skull fracture. 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 Visualized portions of paranasal sinuses and mastoid air cells appear clear except for slight mucosal thickening at the right maxillary sinus. IMPRESSION: No visible acute intracranial abnormality. No hemorrhage or mass effect. This exam was performed using automated exposure control, adjustment of mA or kV according to patient size, and/or use of iterative reconstruction technique. Electronically signed by Buck Ramires 02/01/2019 7:29 PM
--- NOTE | 2019-02-01 19:36 | Diag Imaging Result Doc PS360 ---
EXAM: CHEST-PORTABLE - 02/01/2019 HISTORY: SOB TECHNIQUE: Portable chest COMPARISON: 11/09/2018 FINDINGS: Heart size is normal. There are calcified hilar and mediastinal lymph nodes from old granulomatous disease similar to prior. There is mild prominence of infrahilar markings, but the may be exaggerated by the lordotic projection. There is apparent small infiltrate at the lateral left base. There is no pleural effusion or pneumothorax identified. IMPRESSION: Mild prominence of infrahilar markings. Apparent small infiltrate at lateral left base. Electronically signed by Buck Ramires 02/01/2019 7:33 PM
[2019-02-01 19:41] LABS: BANDS 3 % (0-1); LYMPHS 12 % (21-51); MONO 7 % (1-9); SEGS 76 % (42-75)
[2019-02-01 19:42] LABS: HYPOCHROM OCCASIONAL
[2019-02-01] MEDS ORDERED: TYLENOL PO ONE (19:45)
[2019-02-01] MEDS ORDERED: NS 1,000 ML IV ONE ×2 (20:23→20:32)
[2019-02-01 20:37] LABS: URINE SOURCE CLEAN CATCH
[2019-02-01] MEDS ORDERED: ALBUTEROL 0.5% INH CONC FOR HYPERKALEMIA ONE (20:42)
[2019-02-01] MEDS ORDERED: ATIVAN IV ONE (20:46)
[2019-02-01 20:55] LABS: URINE WBC <10 /HPF (<10)
[2019-02-01 20:56] LABS: BILIRUBIN URINE NEGATIVE (NEGATIVE); COLOR YELLOW; GLUCOSE URINE NEGATIVE (NEGATIVE); KETONE URINE 80 mg/dL (NEGATIVE); TURBIDITY URINE CLEAR (CLEAR); UR EPITHELIAL CELLS <10 /HPF (<10); URINE BACTERIA 1+ /HPF; URINE CASTS NONE SEEN; URINE CRYSTALS NONE SEEN; URINE SMALL ROUND CELLS NONE SEEN; URINE YEAST NONE SEEN
[2019-02-01 20:57] LABS: BLOOD URINE NEGATIVE (NEGATIVE); LEUKOCYTES URINE NEGATIVE (NEGATIVE); NITRITE URINE NEGATIVE (NEGATIVE); PROTEIN URINE 100 mg/dL (NEGATIVE); SP GRAVITY URINE 1.022; UROBILINOGEN URINE 4 mg/dL (NORMAL)
[2019-02-01 21:01] LABS: UR AMPHETAMINES QUAL NONE DETECTED (NONE DETECT); UR BARBITUATES QUAL NONE DETECTED (NONE DETECT); UR BENZODIAZEPIN QUAL PRESUMPTIVE POSITIVE (NONE DETECT); UR CANNABINOIDS QUAL NONE DETECTED (NONE DETECT); UR COCAINE QUAL NONE DETECTED (NONE DETECT); UR METHADONE QUAL NONE DETECTED (NONE DETECT); UR METHAMPHETAMINE QUAL NONE DETECTED (NONE DETECT); UR OPIATES QUAL NONE DETECTED (NONE DETECT); UR OXYCODONE QUAL NONE DETECTED (NONE DETECT); UR PCP QUAL NONE DETECTED (NONE DETECT); UR PROPOXYPHENE QUAL NONE DETECTED (NONE DETECT); UR TCA QUAL NONE DETECTED (NONE DETECT)
[2019-02-01] MEDS ORDERED: ZOFRAN IV PRN (22:08)
[2019-02-01] MEDS ORDERED: TYLENOL PO PRN (22:08)
[2019-02-01] MEDS: KLONOPIN PO PRN (22:21)
[2019-02-01] MEDS: MORPHINE IV PRN (22:45)
[2019-02-01] MEDS: LOVENOX SUBQ SCH (22:45)
[2019-02-01] MEDS: NS 1,000 ML IV SCH (22:45)
[2019-02-01] MEDS: DUONEB (A & A) INH SCH (23:14)
[2019-02-02] MEDS: ATIVAN IV PRN ×5 (02:29→23:24)
[2019-02-02] MEDS: DUONEB (A & A) INH SCH ×4 (03:44→22:27)
--- NOTE | 2019-02-02 04:56 | EKG Report ---
Test Performed on : 02/01/2019 6:32:14 PM Test Reason : SOB Blood Pressure : / mmHG Vent. Rate : 122 BPM Atrial Rate : 122 BPM P-R Int : 128 ms QRS Dur : 070 ms QT Int : 308 ms P-R-T Axes : 061 081 076 degrees QTc Int : 438 ms Sinus tachycardia. Septal infarct , age undetermined Abnormal ECG When compared with ECG of 09-NOV-2018 14:55, Nonspecific T wave abnormality now evident in Inferior leads Nonspecific T wave abnormality now evident in Lateral leads Unconfirmed Result
[2019-02-02] MEDS: MORPHINE IV PRN ×4 (05:06→20:50)
[2019-02-02 06:38] LABS: BASO# 0.03 X1000 (0.0-0.2); BASO% 0.2 % (0.0-0.8); HEMATOCRIT 41.6 % (42.0-52.0); HEMOGLOBIN 13.4 g/dL (14.0-18.0); IMM GRAN# 0.06 X1000 (0.0-0.04); IMM GRAN% 0.4 % (0.0-0.5); LYMPH# 0.64 X1000 (1.2-3.4); LYMPH% 4.2 % (20.5-51.1); MCH 30.8 PG (27-31); MCHC 32.2 g/dL (33-37); MCV 95.6 FL (81-99); MONO# 0.49 X1000 (0.11-0.59); MONO% 3.2 % (1.7-9.3); MPV 10.1 FL (7.4-10.4); NEUT# 13.89 X1000 (1.4-6.5); PLT 207 X1000 (130-400); RBC 4.35 XMIL (4.7-6.1); RDW 13.3 % (11.5-14.5); WBC 15.11 X1000 (4.8-10.8)
--- NOTE | 2019-02-02 07:03 | HISTORY AND PHYSICAL ---
CHIEF COMPLAINT: Shortness of breath. HISTORY OF PRESENT ILLNESS: This is a 48-year-old male who comes into the emergency room with shortness of breath, productive cough x10 days. States that he is getting worse. He has left arm weakness which is residual from previous CVA. Has a past medical history that includes hypertension, chronic pain syndrome, hyperlipidemia, COPD, depression and anxiety and previous CVA as well as shingles. On evaluation in the emergency room, the patient was noted to have a small left lateral base infiltrate. He was wheezing heavily and noted to have COPD. He was placed on BiPAP and transferred to [facility] for admission. His flu screening was negative. He will be admitted to [facility] for further evaluation and treatment. PAST MEDICAL HISTORY: See HPI. PREVIOUS SURGICAL HISTORY: Tonsillectomy and skin grafting to arms and legs. FAMILY HISTORY: Squamous cell cancer, hypertension in first degree relatives. SOCIAL HISTORY: Smokes 1/2 pack of cigarettes per day, occasional alcohol use. Denies illicit drugs. He has been positive in the past for amphetamines. ALLERGIES: Toradol, Demerol, tramadol and penicillin. HOME MEDICATIONS: 1. Klonopin 1 mg p.o. b.i.d. 2. Effexor 150 mg daily. REVIEW OF SYSTEMS: A 14 point review of systems conducted with the patient. Pertinent positives listed above in the HPI. All other systems reviewed and found to be negative. PHYSICAL EXAMINATION: VITAL SIGNS: Temperature 98 degrees, pulse 86, respirations 25, blood pressure 101/68, oxygen saturation 95%. This is on BiPAP. GENERAL: A 48-year-old male lying in the [facility] bed. He is somewhat anxious, alert and oriented x3. HEENT: Head is atraumatic, normocephalic. Pupils equal, round and reactive to light. Extraocular eye movement is intact. Sclerae anicteric. Conjunctivae pink. Oral mucosa is moist. NECK: Supple. No JVD. No thyromegaly. Trachea is midline. No cervical lymphadenopathy. CARDIAC: S1, S2 appreciated. No murmurs, gallops, rubs. LUNGS: Expiratory wheezing. Prolonged expiratory phase. No rhonchi. No rales. Symmetric rise and fall of respirations. ABDOMEN: Soft, nondistended, nontender. Bowel sounds present in all 4 quadrants. No pulsatile masses. No organomegaly. EXTREMITIES: No cyanosis, clubbing or edema. 1+ pedal pulses. MUSCULOSKELETAL: Left side 3/5 strength, right side 5/5 strength. NEUROLOGICAL: Alert and oriented x3. Cranial nerves 2-12 grossly intact. DIAGNOSTIC DATA: CT of the head, no acute intracranial process. Chest x-ray, left lower lobe infiltrate. LABORATORY DATA: WBC 18.95, hemoglobin 14.9, hematocrit 44.9, platelet count 200,000. Sodium 132, potassium 3.6, chloride 94, carbon dioxide 23, BUN 7, creatinine 0.6, glucose 168. Urine unremarkable. Flu screen was negative. ASSESSMENT AND PLAN: 1. Probable left lower lobe pneumonia. 2. COPD with exacerbation. 3. Hypertension. 4. Continued tobacco abuse. PLAN: Admit patient to PVC. Continue BiPAP. We will give Levaquin IV. Continue his Wellbutrin and Klonopin. Morphine as needed for comfort on BiPAP. We will give Ativan as well. DuoNeb q.6 hours. Further recommendations per patient's clinical course. Dictated by TIFFANIE Sheehan for Fredy Rizvi MD I have performed a face to face diagnostic evaluation. Labs/ Xrays- reviewed. Exam- Chest-rhonchi, CV- regular. A/P- Pneumonia, COPD- Admit , check blood cultures, IV ABX, duo nebs. Dr. Rizvi cc: TIFFANIE Sheehan MD [facility]
[2019-02-02 07:11] LABS: AGAP 17; BUN 9 mg/dL (8-22); CALCIUM 8.4 mg/dL (8.8-10.2); CHLORIDE 98 mmol/L (98-107); COSMO 282; CREATININE 0.7 mg/dL (0.7-1.2); ESTIMATED GFR > 60; GLUCOSE 238 mg/dL (70-104); POTASSIUM 4.3 mmol/L (3.5-5.1); SODIUM 138 mmol/L (136-145); TCO2 23 mmol/L (25-35)
[2019-02-02 07:51] LABS: LYMPHS 7 % (21-51); MONO 4 % (1-9); SEGS 89 % (42-75)
[2019-02-02] MEDS: WELLBUTRIN XL PO SCH (08:45)
[2019-02-02] MEDS: KLONOPIN PO PRN ×2 (09:55→20:50)
[2019-02-02] MEDS: NS 1,000 ML IV SCH ×2 (10:33→23:49)
[2019-02-02] MEDS: LEVAQUIN 750 MG/D5W 750 MG/150 ML IVPB IV SCH (13:10)
--- NOTE | 2019-02-02 20:08 | PROGRESS NOTE ---
DATE: 02/02/2019 SUBJECTIVE: Patient reports feeling better. Currently he is wearing a BiPAP mask on mild respiratory distress. OBJECTIVE: Vital Signs: Temperature 97.6 degrees, heart rate 88, respiratory rate 26, blood pressure 112/70, O2 saturation 93% on BiPAP. Examination: This is a chronically ill-looking, 48-year-old male, lying in bed, wearing a BiPAP mask in mild respiratory distress, tachypneic. Cardiovascular: S1, S2 heard. Tachycardic but no murmurs, gallops, or rubs noted. Respiratory: Wheezing all over both pulmonary bases. Patient is not using any accessory muscles or having work of breathing. Abdomen: Soft. A little bit distended. Nontender to palpation. Bowel sounds present. No organomegaly. Extremities: No clubbing, cyanosis, or edema. Peripheral pulses present in both legs. Neurological: Patient alert, oriented x3. LABORATORY DATA: White cell count 15.11, hemoglobin 13.4, hematocrit 41.6, platelets 207,000. BMP is okay. ASSESSMENT AND PLAN: 1. Acute respiratory hypoxemic respiratory failure secondary to left lower lobe pneumonia. Patient is in mild respiratory distress, tachypneic, requiring BiPAP mask. We will continue with antibiotics in this case, Levaquin and will add ceftriaxone to his current treatment. We will continue with DuoNeb every 4 hours as scheduled. We will continue to monitor this patient closely in [facility]. 2. Chronic obstructive pulmonary disease with exacerbation. As we mentioned before, DuoNeb, IV steroids. 3. Hypertension. Blood pressure is under control. We will continue with same management. 4. Tobacco abuse. Patient reports having quit smoking 4 months ago. 5. Disposition. We will monitor this patient closely. In case this patient continues to feel worse, we may need to be transfer him to intensive care unit. cc: Neftali Hawthorne MD
[2019-02-02] MEDS: LOVENOX SUBQ SCH (22:09)
[2019-02-03] MEDS: MORPHINE IV PRN ×6 (01:12→22:36)
[2019-02-03] MEDS: DUONEB (A & A) INH SCH ×6 (03:47→22:41)
[2019-02-03] MEDS: ATIVAN IV PRN ×3 (04:12→19:29)
[2019-02-03] MEDS: WELLBUTRIN XL PO SCH (08:08)
[2019-02-03] MEDS: KLONOPIN PO PRN ×2 (08:08→15:02)
[2019-02-03 10:45] LABS: ALLEN TEST YES; BE 2.1 mmoll (-3.0-3.0); BLOOD TYPE ARTERIAL; HCO3-(ACT) 26.5 mmoll (20.0-26.0); METHB 0.5 % (0.0-1.5); O2(CT) 16.9 mL/dL (15.0-23.0); O2HB 96.4 % (95.0-99.0); PCO2(98.6) 44 mmHg (35-45); PO2(98.6) 89 mmHg (60-100); SAMPLE BLOOD; SAO2 97.7 % (95.0-100.0); THB 12.4 g/dL (11.5-17.4)
[2019-02-03] MEDS ORDERED: VANCOMYCIN IV PER PHARMACY MISC SCH (10:45)
[2019-02-03 10:46] LABS: MODALITY CANNULA
[2019-02-03 11:27] LABS: BASO# 0.02 X1000 (0.0-0.2); BASO% 0.1 % (0.0-0.8); EOS# 0.01 X1000 (0.0-0.7); EOS% 0.1 % (0.0-10.0); HEMATOCRIT 36.7 % (42.0-52.0); HEMOGLOBIN 11.9 g/dL (14.0-18.0); IMM GRAN# 0.04 X1000 (0.0-0.04); IMM GRAN% 0.3 % (0.0-0.5); LYMPH# 1.73 X1000 (1.2-3.4); LYMPH% 10.9 % (20.5-51.1); MCH 31.1 PG (27-31); MCHC 32.4 g/dL (33-37); MCV 95.8 FL (81-99); MONO# 1.47 X1000 (0.11-0.59); MONO% 9.2 % (1.7-9.3); MPV 9.3 FL (7.4-10.4); NEUT# 12.67 X1000 (1.4-6.5); NEUT% 79.4 % (42.2-75.2); PLT 300 X1000 (130-400); RBC 3.83 XMIL (4.7-6.1); RDW 13.5 % (11.5-14.5); WBC 15.94 X1000 (4.8-10.8)
[2019-02-03 11:33] LABS: AGAP 11; BUN 11 mg/dL (8-22); CALCIUM 8.6 mg/dL (8.8-10.2); CHLORIDE 106 mmol/L (98-107); COSMO 284; CREATININE 0.5 mg/dL (0.7-1.2); ESTIMATED GFR > 60; GLUCOSE 121 mg/dL (70-104); POTASSIUM 3.7 mmol/L (3.5-5.1); SODIUM 142 mmol/L (136-145); TCO2 25 mmol/L (25-35)
[2019-02-03] MEDS: NS 1,000 ML IV SCH ×2 (12:05→15:05)
[2019-02-03 12:09] LABS: BANDS 2 % (0-1); LYMPHS 14 % (21-51); MONO 6 % (1-9); SEGS 78 % (42-75)
--- NOTE | 2019-02-03 12:18 | PROGRESS NOTE ---
DATE: 02/03/2019 SUBJECTIVE: Patient reports feeling worse. He looks more short of breath. OBJECTIVE: Vital Signs: Temperature 98.3 degrees, heart rate 92, respiratory rate 18, blood pressure 124/87, O2 saturation 95% on 5 L nasal cannula. General Examination: This is a chronically ill-looking, 48-year-old, male, lying in bed, wearing a BiPAP mask, in mild respiratory distress, tachypneic. Cardiovascular Examination: S1 and S2 heard. Tachycardic but no murmurs, gallops, or rubs noted. Respiratory Examination: Wheezing all over pulmonary cason. Definitely worse in comparing with yesterday. Patient is not using any accessory muscles or having work of breathing. Abdomen: Soft. A little bit distended but nontender to palpation. Bowel sounds present. No organomegaly. Extremities: No clubbing, cyanosis, or edema. Peripheral pulses present in both legs. Neurological Examination: The patient is alert and oriented x3. Moves 4 extremities. Laboratory Data: Pending at the time of dictation, CBC but the ABG showed pH 7.40 with pCO2 of 44 and PO2 of 89. ASSESSMENT/PLAN: 1. Acute hypoxemic respiratory failure secondary to left lower lobe pneumonia. The patient continues to be in mild respiratory distress. That is getting worse. Tachypneic. Continues to require BiPAP mask. At this point, I am planning to send this patient to the intensive care unit for better monitoring. We will do a CTA of the pulmonary arteries and we will go from there. The patient currently is on Levaquin and ceftriaxone for this infection. We will continue with the same management. 2. Chronic obstructive pulmonary disease exacerbation. We will continue with DuoNeb and continue antibiotics as above. 3. Hypertension. Blood pressure is under control. We will continue with the same management. 4. Tobacco abuse. The patient has been counseled about quitting smoking and he reports having done that four months ago. 5. Disposition. We will transfer this patient to the intensive care unit. cc: Neftali Hawthorne MD [facility]TD[facility]
[2019-02-03] MEDS ORDERED: TESSALON PO PRN (12:19)
[2019-02-03] MEDS ORDERED: VANCOMYCIN 2 GM in NS 500 ML IV ONE (13:00)
--- NOTE | 2019-02-03 14:01 | Diag Imaging Result Doc PS360 ---
EXAM: CT ANGIOGRAM PULMONARY ARTERIES - 02/03/2019 HISTORY: worsening sob TECHNIQUE: CT angiogram pulmonary arteries with intravenous contrast. Axial, coronal, and 3-D MIP images are obtained. COMPARISON: 02/01/2019 portable chest radiograph FINDINGS: There are artifacts, presumably from motion, which substantially limit detail. There are no discrete filling defects identified in the pulmonary arteries. There is no indication of aortic dissection. There is a lobulated opacity at the right apex. This likely represents consolidation/pneumonia, although mass lesion cannot be entirely excluded. There is consolidation at the left lower lobe. There are additional scattered small infiltrates. These findings are suspicious for pneumonia. There are small bilateral pleural effusions. There is no evidence of pneumothorax. There are calcified left hilar and mediastinal lymph nodes from old granulomatous disease. There are borderline noncalcified mediastinal lymph nodes. IMPRESSION: Artifacts, apparently from motion, which limit detail. No discrete pulmonary emboli. Bilateral pneumonia, most prominent at the right apex and left lower lobe. The possibility of mass lesion at the right apex cannot be entirely excluded. Electronically signed by Buck Ramires 02/03/2019 1:59 PM
[2019-02-03] MEDS: SOLU-MEDROL IV SCH ×2 (14:17→19:29)
[2019-02-03] MEDS: LEVAQUIN 750 MG/D5W 750 MG/150 ML IVPB IV SCH (14:17)
[2019-02-03] MEDS: NICODERM PATCH TD SCH (14:25)
--- NOTE | 2019-02-03 14:29 | CONSULTATION ---
DATE OF CONSULTATION: 02/03/2019 REQUESTING PROVIDER: Dr. Neftali Ramos. REASON FOR CONSULTATION: Worsening respiratory failure. HISTORY OF PRESENT ILLNESS: This is a 48-year-old male with a medical history of COPD with ongoing tobacco abuse, hypertension, chronic pain syndrome, hyperlipidemia, depression, anxiety, and CVA. He presented to the ER on the evening of February 01, 2019 with worsening shortness of breath of breath, productive cough for 10 days. Initial chest x- ray showed mild prominence of infrahilar markings, apparent small infiltrate at the lateral left base. He also was found to have heavy wheezing in the ER. He has been admitted since then with pneumonia and COPD exacerbation. He has been treated with Levaquin and vancomycin and 1 high dosage of Solu- Medrol. The nurse reported that he became severely anxious since last night and complaining of left shoulder pain and then generalized pain all over. At the time of my assessment, patient already received 1 mg of Klonopin over 3 hours, 1 mg lorazepam over 2 hours, and 2 mg IV morphine over 1 hour. He is lying in bed, sitting and preparing to eat his lunch, with no acute distress noted. He is complaining of some mild pain in his left shoulder blade. He reports a productive cough with blood tingled yellow sputum over 2 weeks. This morning up to now, he has no more blood tingled sputum and yesterday he had coughed up overall about 1 teaspoon of blood. He reports no chest pain, palpitations, nausea, vomiting, constipation, diarrhea, urination discomfort, fever, chill. He reports his left shoulder pain is chronic but worsening in the last several days secondary to severe cough. PAST MEDICAL HISTORY: 1. COPD with ongoing tobacco abuse. 2. Hypertension. 3. Chronic pain syndrome. 4. Hyperlipidemia. 5. Depression and anxiety. 6. Previous CVA. 7. Shingles. PAST SURGICAL HISTORY: Tonsillectomy and skin grafting to arms and legs. FAMILY HISTORY: Positive for squamous cell carcinoma, hypertension. SOCIAL HISTORY: The patient smokes 1 pack per day since age of 12. He drinks beer occasionally. He has no history of illicit drug use per patient, but he was positive for amphetamines in the past per the E-chart. ALLERGIES: Toradol, Demerol, tramadol, and penicillin. REVIEW OF SYSTEMS: A 10-point review of systems was conducted and the pertinent is listed within the HPI, otherwise noncontributory. PHYSICAL EXAMINATION: Vital Signs: Temperature 98.3, blood pressure 124/87, pulse 92, respiratory rate 28, oxygen saturation 95% on nasal cannula at 5 L. General: Chronically ill- appearing, lying in bed, preparing to have his lunch. No acute distress noted. HEENT: Atraumatic, normocephalic. Trachea midline. Mucosa pink and moist. Respiratory: Even and unlabored. Symmetrical excursion. Auscultation revealed some mild to moderate expiratory wheezing bilaterally with prolonged expiratory phase. Cardiovascular: Regular rate and rhythm. Gastrointestinal: Soft, nondistended, nontender. Normoactive bowel sounds in all 4 quadrants. Extremities: No pedal edema. No cyanosis. No clubbing. Dorsalis pedis 1+ bilaterally. Neurologic: Alert and oriented x3. Speech fluent. Follows commands. Left upper extremity weakness noted. LAB DATA: White blood cell 15.94, hemoglobin 11.9, hematocrit 36.7, platelets 300,000. Sodium 142, potassium 3.7, chloride 106, carbon dioxide 25, BUN 11, creatinine 0.5, glucose 121. ABG, pH 7.40, pCO2 44, PO2 89, HC03 26.5, base excess 2.1, and oxyhemoglobin 96.4. IMAGING DATA: The patient currently has a CT angiogram pulmonary arteries pending. ASSESSMENT: This is a 48-year-old male with a medical history of chronic obstructive pulmonary disease with ongoing tobacco abuse, hypertension, chronic pain syndrome, hyperlipidemia, depression, anxiety, previous cerebrovascular accident, and shingles. He has been admitted since February 01, 2019 with pneumonia and chronic obstructive pulmonary disease exacerbation. 1. Acute hypoxic respiratory failure. 2. Possible left lower lobe pneumonia. 3. Chronic obstructive pulmonary disease exacerbation. 4. Ongoing tobacco abuse. 5. Reported hemoptysis. PLAN: 1. Continue supplemental oxygen as needed. 2. Continue antibiotics and bronchodilators. Start low dosage IV steroids and cough suppressant as needed. 3. Follow up with ABG, CBC, BMP, blood culture, and CT angiogram pulmonary arteries. 4. Educate the patient on the importance of smoking cessation. Patient stated that he is ready to quit and he would like me to add nicotine patch at this time. 5. Further recommendations pending hospital course. Thank you for the courtesy of this consult. Dictated by TIFFANIE Ambrocio for Sloane Pugh MD cc: TIFFANIE Ambrocio MD [facility]
[2019-02-03] MEDS: NEURONTIN PO SCH (21:25)
[2019-02-03] MEDS: LOVENOX SUBQ SCH (21:25)
[2019-02-04] MEDS: ATIVAN IV PRN ×4 (00:21→15:33)
[2019-02-04] MEDS: SOLU-MEDROL IV SCH ×4 (01:20→19:33)
[2019-02-04] MEDS: VANCOMYCIN 1.5 GM in NS 250 ML IV SCH ×2 (01:20→12:09)
[2019-02-04] MEDS: NS 1,000 ML IV SCH ×2 (02:58→17:49)
[2019-02-04] MEDS: DUONEB (A & A) INH SCH ×6 (03:04→23:18)
[2019-02-04] MEDS: MORPHINE IV PRN ×5 (03:17→21:09)
[2019-02-04 04:33] LABS: ALLEN TEST YES; BE -0.6 mmoll (-3.0-3.0); BLOOD TYPE ARTERIAL; HCO3-(ACT) 24.4 mmoll (20.0-26.0); METHB 0.5 % (0.0-1.5); O2(CT) 17.6 mL/dL (15.0-23.0); O2HB 96.4 % (95.0-99.0); PCO2(98.6) 43 mmHg (35-45); PO2(98.6) 94 mmHg (60-100); SAMPLE BLOOD; SAO2 97.3 % (95.0-100.0); THB 12.9 g/dL (11.5-17.4); pH(98.6) 7.37 (7.35-7.45)
[2019-02-04 04:34] LABS: MODALITY CANNULA
[2019-02-04 06:45] LABS: AGAP 9; BUN 7 mg/dL (8-22); CHLORIDE 104 mmol/L (98-107); COSMO 285; CREATININE 0.5 mg/dL (0.7-1.2); ESTIMATED GFR > 60; GLUCOSE 228 mg/dL (70-104); SODIUM 140 mmol/L (136-145); TCO2 27 mmol/L (25-35)
[2019-02-04 06:46] LABS: BASO# 0.02 X1000 (0.0-0.2); BASO% 0.2 % (0.0-0.8); HEMATOCRIT 39.3 % (42.0-52.0); HEMOGLOBIN 12.4 g/dL (14.0-18.0); IMM GRAN# 0.02 X1000 (0.0-0.04); IMM GRAN% 0.2 % (0.0-0.5); LYMPH# 0.49 X1000 (1.2-3.4); MCH 30.3 PG (27-31); MCHC 31.6 g/dL (33-37); MCV 96.1 FL (81-99); MONO# 0.21 X1000 (0.11-0.59); MONO% 2.6 % (1.7-9.3); MPV 9.3 FL (7.4-10.4); NEUT# 7.42 X1000 (1.4-6.5); PLT 351 X1000 (130-400); RBC 4.09 XMIL (4.7-6.1); RDW 13.4 % (11.5-14.5); WBC 8.16 X1000 (4.8-10.8)
[2019-02-04 07:44] LABS: BANDS 2 % (0-1); MONO 4 % (1-9)
[2019-02-04 07:45] LABS: LYMPHS 2 % (21-51); SEGS 90 % (42-75)
[2019-02-04] MEDS: NEURONTIN PO SCH ×2 (08:09→21:09)
[2019-02-04] MEDS: WELLBUTRIN XL PO SCH (08:09)
[2019-02-04] MEDS: NICODERM PATCH TD SCH (08:09)
[2019-02-04] MEDS: KLONOPIN PO PRN ×2 (08:09→19:33)
[2019-02-04] MEDS: EFFEXOR XR PO SCH (09:32)
--- NOTE | 2019-02-04 09:57 | PROVIDER PROGRESS NOTE ---
Progress Note Pulmonary additional note: Chest CT films were reviewed. Will follow up imaging in a week with antibiotics. If findings are not better, will consider tissue diagnosis (CT biopsy is best route). PET as out patient is also a consideration.
--- NOTE | 2019-02-04 10:08 | PROGRESS NOTE ---
DATE: 02/04/2019 SUBJECTIVE: The patient reports feeling a little bit better. He looks still short of breath, tachypneic. No other issues noted as per nursing staff overnight. OBJECTIVE: Vital Signs: Temperature 98.9 degrees, heart rate 105, respiratory rate 25, blood pressure 151/100, O2 saturation 94% on 5 L nasal cannula. General: This is an ill-appearing, 48- year-old, male, lying in bed in mild respiratory distress. Cardiovascular: S1, S2 heard. Tachycardic, but no murmurs, gallops, or rubs noted. Respiratory: Wheezing all over both pulmonary cason, same in comparing with yesterday. The patient is not using any accessory muscles or having work of breathing. Abdomen: Soft, a little bit distended, but nontender to palpation. Bowel sounds present. No organomegaly. Extremities: No clubbing, cyanosis, or edema. Peripheral pulses present in both legs. Neurological: The patient is alert and oriented x3. Moves all 4 extremities. LABORATORY DATA: White cell count 8.16, hemoglobin 12.4, hematocrit 39.3, platelets 351,000. Normal ABG. BMP is also unremarkable. ASSESSMENT AND PLAN: 1. Acute hypoxemic respiratory failure secondary to left lower lobe pneumonia. The patient was transferred to the intensive care unit yesterday because he has been in mild respiratory distress. Today, this patient reports feeling better, although he looks still tachypneic. We have done a CTA of the pulmonary arteries, which basically ruled out pulmonary embolism. The patient is on vancomycin and Levaquin. Will continue with the same management. White cell count is back to normal. 2. Chronic obstructive pulmonary disease exacerbation. Will continue with DuoNebs and antibiotics as above. 3. Hypertension. Blood pressure is under control. Will continue with the same management. 4. Tobacco abuse. The patient was counseled as to quitting smoking tobacco. 5. Disposition. Will continue to manage this patient here in the intensive care unit. Pulmonary has been consulted. Will follow recommendations. cc: Neftali Hawthorne MD
[2019-02-04] MEDS: NORCO-10 PO PRN ×2 (13:27→22:39)
[2019-02-04] MEDS: LEVAQUIN 750 MG/D5W 750 MG/150 ML IVPB IV SCH (14:20)
[2019-02-04] MEDS: LOVENOX SUBQ SCH (21:09)
[2019-02-05] MEDS: VANCOMYCIN 1.5 GM in NS 250 ML IV SCH (00:02)
[2019-02-05] MEDS: SOLU-MEDROL IV SCH ×2 (03:00→14:28)
[2019-02-05] MEDS: DUONEB (A & A) INH SCH ×6 (04:04→23:38)
[2019-02-05] MEDS: MORPHINE IV PRN ×4 (05:25→23:50)
[2019-02-05] MEDS: NS 1,000 ML IV SCH ×2 (06:40→21:12)
[2019-02-05 06:54] LABS: BASO# 0.01 X1000 (0.0-0.2); BASO% 0.1 % (0.0-0.8); HEMATOCRIT 38.9 % (42.0-52.0); HEMOGLOBIN 12.4 g/dL (14.0-18.0); IMM GRAN# 0.05 X1000 (0.0-0.04); IMM GRAN% 0.4 % (0.0-0.5); LYMPH# 0.92 X1000 (1.2-3.4); LYMPH% 7.3 % (20.5-51.1); MCH 30.8 PG (27-31); MCHC 31.9 g/dL (33-37); MCV 96.8 FL (81-99); MONO# 0.52 X1000 (0.11-0.59); MONO% 4.2 % (1.7-9.3); MPV 9.2 FL (7.4-10.4); NEUT# 11.03 X1000 (1.4-6.5); PLT 422 X1000 (130-400); RBC 4.02 XMIL (4.7-6.1); RDW 13.5 % (11.5-14.5); WBC 12.53 X1000 (4.8-10.8)
[2019-02-05 07:18] LABS: AGAP 11; BUN 12 mg/dL (8-22); CHLORIDE 101 mmol/L (98-107); COSMO 280; CREATININE 0.5 mg/dL (0.7-1.2); ESTIMATED GFR > 60; GLUCOSE 178 mg/dL (70-104); POTASSIUM 3.7 mmol/L (3.5-5.1); SODIUM 138 mmol/L (136-145); TCO2 26 mmol/L (25-35)
[2019-02-05 07:31] LABS: LYMPHS 6 % (21-51); MONO 2 % (1-9); SEGS 92 % (42-75)
[2019-02-05] MEDS: KLONOPIN PO PRN ×2 (07:45→21:15)
[2019-02-05] MEDS: NORCO-10 PO PRN ×2 (07:45→14:34)
[2019-02-05] MEDS: WELLBUTRIN XL PO SCH (08:08)
[2019-02-05] MEDS: NICODERM PATCH TD SCH (08:08)
[2019-02-05] MEDS: EFFEXOR XR PO SCH (08:09)
[2019-02-05] MEDS: NEURONTIN PO SCH ×2 (08:09→21:12)
[2019-02-05] MEDS ORDERED: MIRALAX PO SCH (09:00)
--- NOTE | 2019-02-05 10:14 | PROGRESS NOTE ---
DATE: 02/05/2019 SUBJECTIVE: The patient is feeling better. He is still complaining of some shortness of breath. At this moment, he is not tachypneic, and he has been complaining of back pain, head pain and chest pain, which is sharp and mostly with deep inspiration. OBJECTIVE: Vital Signs: Temperature 97.8 degrees, pulse 79, respiratory rate 18, blood pressure 161/114, and oxygen saturation 96 on 5 L of nasal cannula. HEENT: Head normocephalic. No trauma. PERRLA. Neck: Supple. No JVD. No masses. Central trachea. Chest: Decreased breath sounds bilaterally with end faint expiratory wheezing and some crepitus at the bases mostly on the left side base. Abdomen: Soft. Slightly protuberant. Nontender. Nondistended. Positive bowel sounds. Extremities: No edema. No clubbing. No cyanosis. Neurological: The patient is alert and oriented x3. No focal deficits. LABORATORY: WBC 12.5, hemoglobin 12.4, hematocrit 38.9, and platelets 422,000. Pending the rest of the lab work today. ASSESSMENT AND PLAN: 1. Acute hypoxemic respiratory failure secondary to left lower lobe pneumonia/COPD exacerbation. This patient has been transferred to the intensive care unit due to respiratory distress, but he seems to be feeling better. He is still complaining of back pain, chest pain and headache. A CT angiogram of the chest did not show any pulmonary embolism. We will continue with the same management for now. White blood cell count increased a little bit compared with yesterday from 8 to 12. 2. Chronic obstructive pulmonary disease exacerbation. We will continue with DuoNeb and antibiotics. He has been placed on steroids as well, which I will decrease today. He seems to be better, and he is not wheezing that much today so I will decrease it from 40 mg IV q.6 hours to 40 mg IV q.12 hours. 3. Hypertension. Blood pressures seems to be slightly elevated. We will continue with same management for now. I do not see any medication listed for blood pressure at home. 4. Hyperglycemia. This is likely secondary to steroids, but he has been having high blood sugar before, mostly in the 120s on previous hospitalizations so I will ask for a hemoglobin A1c to rule out diabetes. 5. Tobacco abuse. This patient has been highly advised against tobacco use. I will continue with daily cessation education. CRITICAL CARE TIME: 30 minutes. cc: Diogo Thompson MD
[2019-02-05] MEDS: ATIVAN IV PRN ×2 (10:38→19:25)
[2019-02-05] MEDS: VANCOMYCIN 2,000 MG in NS 500 ML IV SCH (13:29)
[2019-02-05] MEDS: LEVAQUIN 750 MG/D5W 750 MG/150 ML IVPB IV SCH (15:37)
[2019-02-05] MEDS: LOVENOX SUBQ SCH (21:12)
[2019-02-06] MEDS: VANCOMYCIN 2,000 MG in NS 500 ML IV SCH ×2 (00:01→13:21)
[2019-02-06] MEDS: ATIVAN IV PRN ×3 (00:53→15:31)
[2019-02-06] MEDS: SOLU-MEDROL IV SCH ×2 (01:02→13:21)
[2019-02-06] MEDS: DUONEB (A & A) INH SCH ×6 (03:39→23:22)
[2019-02-06] MEDS: NORCO-10 PO PRN ×2 (03:56→16:05)
[2019-02-06 06:25] LABS: AGAP 11; ALBUMIN 2.8 g/dL (3.5-5.0); ALKALINE PHOSPHATASE 48 U/L (32-122); BUN 12 mg/dL (8-22); CALCIUM 8.4 mg/dL (8.8-10.2); CHLORIDE 100 mmol/L (98-107); COSMO 282; CREATININE 0.5 mg/dL (0.7-1.2); ESTIMATED GFR > 60; GLUCOSE 210 mg/dL (70-104); GOT 11 U/L (10-34); GPT 19 U/L (10-44); POTASSIUM 3.9 mmol/L (3.5-5.1); SODIUM 138 mmol/L (136-145); TCO2 27 mmol/L (25-35); TOTAL BILIRUBIN < 0.15 mg/dL (0.20-1.00); TOTAL PROTEIN 5.7 g/dL (6.3-8.3)
[2019-02-06 07:01] LABS: BASO# 0.01 X1000 (0.0-0.2); BASO% 0.1 % (0.0-0.8); HEMATOCRIT 39.7 % (42.0-52.0); HEMOGLOBIN 12.5 g/dL (14.0-18.0); IMM GRAN# 0.12 X1000 (0.0-0.04); LYMPH# 0.64 X1000 (1.2-3.4); LYMPH% 5.2 % (20.5-51.1); MCH 30.3 PG (27-31); MCHC 31.5 g/dL (33-37); MCV 96.4 FL (81-99); MONO# 0.53 X1000 (0.11-0.59); MONO% 4.3 % (1.7-9.3); MPV 8.8 FL (7.4-10.4); NEUT# 11.09 X1000 (1.4-6.5); NEUT% 89.4 % (42.2-75.2); PLT 465 X1000 (130-400); RBC 4.12 XMIL (4.7-6.1); RDW 13.4 % (11.5-14.5); WBC 12.39 X1000 (4.8-10.8)
[2019-02-06 07:39] LABS: BANDS 2 % (0-1); LYMPHS 8 % (21-51); MONO 6 % (1-9); SEGS 82 % (42-75)
--- NOTE | 2019-02-06 07:43 | Diag Imaging Result Doc PS360 ---
EXAM: CHEST-PORTABLE INDICATION: dyspnea TECHNIQUE: One view COMPARISON: 02/01/2019 FINDINGS: Ill-defined airspace consolidation involving the left lower lobe appears slightly more prominent. No new consolidation is identified, otherwise. Cardiac silhouette is stable. IMPRESSION: Interval slight increase in ill-defined consolidation in the left lower lobe. Electronically signed by Kwame Malik 02/06/2019 7:41 AM
[2019-02-06 07:46] LABS: HEMOGLOBIN A1C 5.7 % (4.8-6.0)
[2019-02-06] MEDS: DULCOLAX PR SCH (08:30)
[2019-02-06] MEDS: NICODERM PATCH TD SCH (08:30)
[2019-02-06] MEDS: EFFEXOR XR PO SCH (08:30)
[2019-02-06] MEDS: MIRALAX PO SCH ×2 (08:30→20:48)
[2019-02-06] MEDS: WELLBUTRIN XL PO SCH (08:31)
[2019-02-06] MEDS: NEURONTIN PO SCH ×2 (08:31→20:48)
[2019-02-06] MEDS: MORPHINE IV PRN ×5 (08:31→20:48)
--- NOTE | 2019-02-06 11:46 | PROGRESS NOTE ---
DATE: 02/06/2019 SUBJECTIVE: This patient is feeling better. He is still complaining of some chest pain and shoulder pain that is painful to palpation and deep inspiration, sharp. OBJECTIVE: Vital Signs: Temperature 97.4 degrees, pulse 81, respiratory rate 19, blood pressure 149/99, oxygen saturation 96 on the BiPAP machine and also 3 L of nasal cannula. HEENT: Head normocephalic. No trauma. PERRLA. Neck: Supple. No JVD. No masses. Central trachea. Chest: Decreased breath sounds bilaterally with mild and faint expiratory wheezing. Crepitus at the bases, mostly on the left side. Abdomen: Soft, slightly protuberant, nontender, nondistended. Positive bowel sounds. Extremities: No edema, no clubbing, no cyanosis. Neurological Examination: The patient is completely awake, alert, and oriented x3. No focal deficits but some generalized weakness. Laboratory: WBC 12.3, hemoglobin 12.5, hematocrit 39.7, platelets 465,000. Sodium 139, potassium 3.9, chloride 100, bicarbonate 27, BUN 12, creatinine 0.5, glucose 210, calcium 8.4. AST 11, ALT 19, alkaline phosphatase 48, albumin 2.8. ASSESSMENT AND PLAN: 1. Acute hypoxemic respiratory failure secondary to left lower lobe pneumonia/chronic obstructive pulmonary disease exacerbation. This patient has been transferred to the intensive care unit due to respiratory distress but he seems to be getting better. He is still complaining of back pain, chest pain, and left shoulder pain, mostly with deep inspiration. CT angiogram of the chest did not show pulmonary embolism. Continue with the same management. White blood cell count about the same compared with yesterday but he is getting steroids. 2. Chronic obstructive pulmonary disease exacerbation. Continue with the same management for now. I decreased yesterday the dose of the steroids. 3. Hypertension, stable. For now, we will continue with the same management. 4. Hyperglycemia. I ordered a hemoglobin A1c which is pending right now. He has been having episodes of hyperglycemia before. 5. Chest pain and left shoulder pain. Initially, his troponins were negative and the pain is with deep inspiration. He also has some pain with palpation. I will monitor for now. I will order some troponins just to make sure that he does not have any acute coronary syndrome. 6. Constipation. I started this patient on MiraLAX yesterday but so far, no bowel movements. I will increase the dose of MiraLAX to twice a day and I will add suppositories. 7. Tobacco abuse. This patient has been highly advised against tobacco use. I will continue with daily cessation education. 8. The patient seems to be getting better. He spent the night with a BiPAP machine and he is tolerating nasal cannula during the day. I will transfer this patient to the floor. cc: Diogo Thompson MD
[2019-02-06] MEDS: KLONOPIN PO PRN ×2 (12:39→20:48)
[2019-02-06] MEDS: LEVAQUIN 750 MG/D5W 750 MG/150 ML IVPB IV SCH (13:21)
[2019-02-06] MEDS: LOVENOX SUBQ SCH (20:48)
[2019-02-07] MEDS: VANCOMYCIN 2,000 MG in NS 500 ML IV SCH ×2 (01:13→14:24)
[2019-02-07] MEDS: SOLU-MEDROL IV SCH ×2 (01:13→13:37)
[2019-02-07] MEDS: LOVENOX SUBQ SCH ×3 (02:57→23:23)
[2019-02-07] MEDS: DUONEB (A & A) INH SCH ×6 (03:25→23:10)
[2019-02-07] MEDS: ATIVAN IV PRN (05:00)
[2019-02-07] MEDS: MORPHINE IV PRN ×2 (07:45→13:37)
[2019-02-07 08:05] LABS: BASO# 0.02 X1000 (0.0-0.2); BASO% 0.2 % (0.0-0.8); HEMATOCRIT 42.4 % (42.0-52.0); HEMOGLOBIN 13.2 g/dL (14.0-18.0); IMM GRAN# 0.15 X1000 (0.0-0.04); IMM GRAN% 1.2 % (0.0-0.5); LYMPH% 6.6 % (20.5-51.1); MCH 30.3 PG (27-31); MCHC 31.1 g/dL (33-37); MCV 97.5 FL (81-99); MONO# 0.63 X1000 (0.11-0.59); MONO% 5.2 % (1.7-9.3); MPV 8.8 FL (7.4-10.4); NEUT# 10.44 X1000 (1.4-6.5); NEUT% 86.8 % (42.2-75.2); PLT 496 X1000 (130-400); RBC 4.35 XMIL (4.7-6.1); RDW 13.6 % (11.5-14.5); WBC 12.04 X1000 (4.8-10.8)
[2019-02-07 08:34] LABS: AGAP 10; BUN 16 mg/dL (8-22); CALCIUM 8.8 mg/dL (8.8-10.2); CHLORIDE 97 mmol/L (98-107); COSMO 280; CREATININE 0.6 mg/dL (0.7-1.2); ESTIMATED GFR > 60; GLUCOSE 197 mg/dL (70-104); POTASSIUM 4.6 mmol/L (3.5-5.1); SODIUM 137 mmol/L (136-145); TCO2 30 mmol/L (25-35)
[2019-02-07 08:44] LABS: BANDS 2 % (0-1); LYMPHS 2 % (21-51); SEGS 95 % (42-75)
[2019-02-07] MEDS: NEURONTIN PO SCH ×2 (09:12→20:47)
[2019-02-07] MEDS: EFFEXOR XR PO SCH (09:12)
[2019-02-07] MEDS: DULCOLAX PR SCH ×2 (09:12→09:18)
[2019-02-07] MEDS: WELLBUTRIN XL PO SCH (09:12)
[2019-02-07] MEDS: NICODERM PATCH TD SCH (09:12)
[2019-02-07] MEDS: MIRALAX PO SCH ×2 (09:13→20:47)
--- NOTE | 2019-02-07 09:41 | PROVIDER PROGRESS NOTE ---
Progress Note Additional Pulmonary note: If patient remains in the hospital by Monday, we will consider CT chest repeat then.
[2019-02-07] MEDS: NORCO-10 PO PRN ×2 (11:12→18:11)
[2019-02-07] MEDS: KLONOPIN PO PRN ×2 (11:12→20:47)
[2019-02-07] MEDS: LEVAQUIN 750 MG/D5W 750 MG/150 ML IVPB IV SCH (13:37)
--- NOTE | 2019-02-07 19:30 | PROGRESS NOTE ---
DATE: 02/07/2019 SUBJECTIVE: This patient is feeling better. He is still having shortness of breath and wheezing. We will continue with the respiratory treatment. We will continue with steroids. I will stop the morphine and Ativan since he is getting also oral medication and he is tolerating these. Negative troponins. He is eating. OBJECTIVE: Vital Signs: Temperature 98 degrees, pulse 95, respiratory rate 16, blood pressure 134/82, oxygen saturation 100% on 3 L of nasal cannula. HEENT: Head normocephalic, no trauma. PERRLA. Neck: Supple. No JVD. No masses. Central trachea. Chest: Decreased breath sounds bilaterally with expiratory wheezing. Crepitus at the bases, mostly on the left side. Abdomen: Soft, slightly protuberant, nontender, nondistended. Positive bowel sounds. Extremities: No edema, no clubbing, no cyanosis. Neurological: The patient is completely awake, alert, and oriented x3. No focal deficits, but some generalized weakness. LABORATORY: WBC 12, hemoglobin 13.2, hematocrit 42.4, platelets 496,000. Sodium 137, potassium 4.6, chloride 97, bicarbonate 30, BUN 16, creatinine 0.6, glucose 197, calcium 8.8. Troponins negative x3. ASSESSMENT AND PLAN: 1. Acute hypoxemic respiratory failure secondary to left lower lobe pneumonia/chronic obstructive pulmonary disease exacerbation. The patient was transferred initially to the intensive care unit due to respiratory distress, but he seems to be better. Now he is on the medical floor. He is tolerating p.o. and he has been placed on nasal cannula. CT angiogram of the chest did not show a pulmonary embolism. Continue with same management. I have stopped the morphine and also the Ativan. 2. Chronic obstructive pulmonary disease exacerbation. Continue with same management. Yesterday, I decreased the dose of the steroids. I will continue with same treatment today. 3. Hypertension, stable. 4. Hyperglycemia. Hemoglobin A1c is 5.7, so probably the hyperglycemia is due to steroids. 5. Chest pain and left shoulder pain. Initially, his troponins were negative, and now I repeated again and they are negative again. He has pain to palpation and deep inspiration. We will monitor for now. 6. Constipation. He has been placed on MiraLAX. He had a couple of bowel movements. We will monitor. 7. Tobacco abuse. This patient has been advised against tobacco use. I will continue with daily cessation education. 8. The patient seems to be getting better. We will continue with nasal cannula and breathing treatment. I have stopped the morphine and the Ativan since he is tolerating p.o. cc: Diogo Thompson MD
[2019-02-08] MEDS: VANCOMYCIN 2,000 MG in NS 500 ML IV SCH ×2 (00:53→15:14)
[2019-02-08] MEDS: SOLU-MEDROL IV SCH ×3 (00:53→13:36)
[2019-02-08] MEDS: DUONEB (A & A) INH SCH ×5 (05:52→19:55)
[2019-02-08] MEDS: EFFEXOR XR PO SCH (08:16)
[2019-02-08] MEDS: WELLBUTRIN XL PO SCH (08:16)
[2019-02-08] MEDS: NICODERM PATCH TD SCH (08:16)
[2019-02-08] MEDS: MIRALAX PO SCH ×2 (08:16→21:35)
[2019-02-08] MEDS: DULCOLAX PR SCH (08:21)
[2019-02-08] MEDS: NORCO-10 PO PRN ×2 (08:22→16:24)
[2019-02-08] MEDS: NEURONTIN PO SCH ×2 (08:23→21:36)
[2019-02-08] MEDS: KLONOPIN PO PRN ×3 (08:23→21:36)
[2019-02-08] MEDS: LEVAQUIN 750 MG/D5W 750 MG/150 ML IVPB IV SCH (13:36)
[2019-02-08] MEDS ORDERED: LASIX IV ONE (16:32)
--- NOTE | 2019-02-08 21:28 | PROGRESS NOTE ---
DATE: 02/08/2019 SUBJECTIVE: This patient is breathing better. He is complaining of anxiety. He requested to increase the dose of Klonopin to 3 times a day instead of twice a day. We will try this treatment for a couple of days. His right upper extremity is swollen, and I did an ultrasound that showed a superficial vein thrombosis. OBJECTIVE: Vital Signs: Temperature 98 degrees, pulse 97, respiratory rate 18, blood pressure 128/95, oxygen saturation 99 on 4 L of nasal cannula. HEENT: Head normocephalic, no trauma. PERRLA. Neck: Supple. No JVD. No masses. Central trachea. Chest: Decreased breath sounds bilaterally with mild end-expiratory wheezing, crepitus at the bases mostly on the left side. Abdomen: Soft, slightly protuberant, nontender, nondistended. Positive bowel sounds. Extremities: No edema. No clubbing. No cyanosis. He does have some edema at the level of the right upper extremity from the hand to the elbow. Neurological: The patient is alert and completely awake. Following commands. He seems to be anxious. LABORATORY: WBC 12, hemoglobin 13.2, hematocrit 42.4, platelets 496,000. Sodium 137, potassium 4.6, chloride 97, bicarbonate 30, BUN 16, creatinine 0.6, glucose 197, calcium 8.8. ASSESSMENT AND PLAN: 1. Acute hypoxemic respiratory failure secondary to left lower lobe pneumonia/chronic obstructive pulmonary disease exacerbation. Continue with same management. 2. Chronic obstructive pulmonary disease exacerbation. Continue breathing treatments, steroids, and antibiotics. 3. Hypertension. Stable. 4. Hyperglycemia. His hemoglobin A1c is 5.7. Probably, the hyperglycemia is due to steroids. 5. Chest pain and left shoulder pain that is likely due to musculoskeletal-type pain. His troponin has been negative initially and also when we repeated it a couple of days ago. No EKG changes. 6. Constipation. This patient started having some bowel movement. We will continue with the same management. 7. Tobacco abuse. This patient has been highly advised against tobacco use. I will continue with daily cessation and education. 8. Anxiety. He has requested to increase the dose of the Klonopin from twice a day to 3 times a day. I will do it for now, and hopefully in the near future, I will decrease it again. cc: Diogo Thompson MD
[2019-02-08] MEDS: LOVENOX SUBQ SCH (21:37)
--- NOTE | 2019-02-08 23:56 | PULMONOLOGY PROGRESS NOTE ---
DATE: 02/08/2019 SUBJECTIVE: The patient is awake and alert. He has a slightly wet voice. OBJECTIVE: Vital Signs: The patient has been afebrile for the last 24 hours. BP 150/93, heart rate 95, respiratory rate 16, oxygen saturation 96% on 4 L per nasal cannula. HEENT: Pupils are equal and reactive. Oropharynx appears clear. Neck: Supple. Chest: Reveals coarse rhonchi bilaterally. Cardiac: S1-S2. Abdomen: Soft. Extremities: Reveal trace edema. LABORATORIES: Sodium 137, potassium 4.6, chloride 97, bicarbonate 30, BUN 16, creatinine 0.6, glucose 197. White blood count not obtained today. No new microbiology data. IMPRESSION: A 48-year-old with: 1. Acute hypoxemic respiratory failure. 2. Continue sputum production. 3. Pneumonia. 4. Lung mass. PLAN: 1. Recommending collecting sputum for C and S given ongoing sputum production. 2. We will give a small diuretic trial. 3. Followup chest x-ray tomorrow. 4. CT-guided biopsy being considered for next week per Dr. Pugh. cc: Dmitri Yan MD
[2019-02-09] MEDS: DUONEB (A & A) INH SCH ×6 (00:11→19:45)
[2019-02-09] MEDS: VANCOMYCIN 2,000 MG in NS 500 ML IV SCH ×2 (01:24→13:02)
[2019-02-09] MEDS: SOLU-MEDROL IV SCH (01:24)
[2019-02-09] MEDS: NORCO-10 PO PRN ×2 (04:38→12:18)
[2019-02-09] MEDS: DULCOLAX PR SCH (09:28)
[2019-02-09] MEDS: MIRALAX PO SCH ×2 (09:29→20:16)
[2019-02-09] MEDS: WELLBUTRIN XL PO SCH (09:29)
[2019-02-09] MEDS: NICODERM PATCH TD SCH (09:29)
[2019-02-09] MEDS: EFFEXOR XR PO SCH (09:30)
[2019-02-09] MEDS: NEURONTIN PO SCH ×2 (09:30→20:17)
[2019-02-09] MEDS: KLONOPIN PO PRN ×3 (09:31→20:17)
--- NOTE | 2019-02-09 11:29 | Diag Imaging Result Doc PS360 ---
EXAM: CHEST-2 VIEWS 02/09/2019 HISTORY: abnormal exam TECHNIQUE: PA and lateral chest COMMENT: There is a platelike opacity present in the left lower lobe. The opacity seen on the previous study of 02/06/2019 has diminished and the lungs are better expanded. IMPRESSION: Residual atelectasis in the left lower lobe. Electronically signed by Leonel Funes 02/09/2019 11:26 AM
[2019-02-09] MEDS: LEVAQUIN 750 MG/D5W 750 MG/150 ML IVPB IV SCH (13:04)
[2019-02-09] MEDS: PREDNISONE PO SCH (20:17)
[2019-02-09] MEDS: LOVENOX SUBQ SCH (20:19)
--- NOTE | 2019-02-09 21:35 | PROGRESS NOTE ---
DATE: 02/09/2019 SUBJECTIVE: The patient is breathing better. Anxiety is better controlled. I will continue with the same management, he has a right upper extremity superficial thrombosis. OBJECTIVE: Vital Signs: Temperature 97.6 degrees, pulse 91, respiratory rate 22, blood pressure 137/87, oxygen saturation 94% on 2 L of nasal cannula. HEENT: Head normocephalic, no trauma. PERRLA. Neck: Supple. No JVD. No masses. Central trachea. Chest: Decreased breath sounds bilaterally with some crepitus at the bases. Abdomen: Soft, slightly protuberant, nontender, nondistended. Positive bowel sounds. Extremities: Right upper extremity edema around 1 to 2+, lower extremities with no edema. No clubbing. No cyanosis. Neurological: The patient is awake, alert. He is oriented x3. He is anxious. LABORATORY: Negative HIV. ASSESSMENT AND PLAN: 1. Acute hypoxemic respiratory failure secondary to left lower lobe pneumonia, COPD exacerbation, continue with same management, I have stopped the IV steroid and put him on p.o. treatment. He seems to be doing better, just mild end-expiratory wheezing. 2. Chronic obstructive pulmonary disease exacerbation, I have stopped the IV treatment and put him on p.o. treatment, continue with antibiotics. 3. Hypertension, stable. 4. Hyperglycemia. Hemoglobin A1c 5.7. Probably the hyperglycemia is due to steroids. We will monitor. 5. Chest pain and left shoulder pain, likely due to musculoskeletal type pain. His troponin has been negative as well as the EKG with no changes. 6. Constipation. Continue with same management. He is having bowel movement. 7. Tobacco abuse. This patient has been highly advised against tobacco use. I will continue with daily cessation education. 8. Anxiety. Continue with same treatment. 9. Right upper extremity superficial thrombosis. We will monitor this. cc: Diogo Thompson MD
--- NOTE | 2019-02-09 21:44 | PULMONOLOGY PROGRESS NOTE ---
DATE: 02/09/2019 SUBJECTIVE: The patient is awake, alert, and conversant. He reports he feels significantly better today. OBJECTIVE: Vital Signs: Patient has been afebrile for the last 24 hours. Blood pressure 126/72, heart rate 104, respiratory rate 20, oxygen saturation 95% on 2 L per nasal cannula. HEENT: Pupils are equal and reactive. Oropharynx appears clear. Neck: Supple. Chest: Reveals prolonged expiratory phase without wheezing or rhonchi. Cardiac exam: S1, S2. Abdomen: Is soft without hepatosplenomegaly. Extremities: Are without edema. LABORATORIES: Chest x-ray reveals significant decrease in the masslike area seen in the left lower lobe. IMPRESSION: A 48-year-old with 1. Acute hypoxemic respiratory failure. 2. Sputum production which has diminished. 3. Pneumonia. 4. Lung mass. DISCUSSION: A 48-year-old with problems outlined above. The patient's chest x-ray continues to improve. PLAN: 1. Continue current steroid and antibiotic regimen. 2. Hypoxemic respiratory failure with improvement. 3. Pneumonia. 4. Decreasing lung mass. 5. Continue current steroid and antibiotic regimen. 6. Continue bronchial hygiene. 7. Wean oxygen as tolerated. 8. Consider followup CT scan next week. cc: Dmitri Yan MD
[2019-02-10] MEDS: DUONEB (A & A) INH SCH ×7 (00:12→23:29)
[2019-02-10] MEDS: NORCO-10 PO PRN ×3 (02:11→16:32)
[2019-02-10] MEDS: VANCOMYCIN 2,000 MG in NS 500 ML IV SCH ×2 (02:12→13:35)
[2019-02-10] MEDS: KLONOPIN PO PRN ×3 (05:09→22:34)
[2019-02-10 08:05] LABS: BASO# 0.02 X1000 (0.0-0.2); BASO% 0.1 % (0.0-0.8); EOS# 0.01 X1000 (0.0-0.7); EOS% 0.1 % (0.0-10.0); HEMATOCRIT 44.5 % (42.0-52.0); HEMOGLOBIN 14.3 g/dL (14.0-18.0); IMM GRAN# 0.53 X1000 (0.0-0.04); IMM GRAN% 3.9 % (0.0-0.5); LYMPH# 1.57 X1000 (1.2-3.4); LYMPH% 11.6 % (20.5-51.1); MCH 30.7 PG (27-31); MCHC 32.1 g/dL (33-37); MCV 95.5 FL (81-99); MONO# 0.87 X1000 (0.11-0.59); MONO% 6.4 % (1.7-9.3); MPV 8.6 FL (7.4-10.4); NEUT# 10.51 X1000 (1.4-6.5); NEUT% 77.9 % (42.2-75.2); PLT 502 X1000 (130-400); RBC 4.66 XMIL (4.7-6.1); RDW 14.1 % (11.5-14.5); WBC 13.51 X1000 (4.8-10.8)
[2019-02-10 08:53] LABS: AGAP 14; BUN 21 mg/dL (8-22); CALCIUM 9.2 mg/dL (8.8-10.2); CHLORIDE 96 mmol/L (98-107); COSMO 279; CREATININE 0.7 mg/dL (0.7-1.2); ESTIMATED GFR > 60; GLUCOSE 111 mg/dL (70-104); POTASSIUM 4.5 mmol/L (3.5-5.1); SODIUM 138 mmol/L (136-145); TCO2 28 mmol/L (25-35)
[2019-02-10] MEDS: EFFEXOR XR PO SCH (08:59)
[2019-02-10] MEDS: WELLBUTRIN XL PO SCH (08:59)
[2019-02-10] MEDS: NEURONTIN PO SCH ×2 (09:00→20:50)
[2019-02-10] MEDS: PREDNISONE PO SCH (09:00)
[2019-02-10] MEDS: NICODERM PATCH TD SCH (09:00)
[2019-02-10] MEDS: DULCOLAX PR SCH (10:33)
[2019-02-10] MEDS: MIRALAX PO SCH ×2 (10:34→21:19)
[2019-02-10] MEDS: LEVAQUIN 750 MG/D5W 750 MG/150 ML IVPB IV SCH (13:06)
--- NOTE | 2019-02-10 13:51 | PROGRESS NOTE ---
DATE: 02/10/2019 SUBJECTIVE: This patient is much better. His anxiety is better controlled. I have decreased the dose of the steroids today again prednisone from 20 twice a day to 20 daily. He has also right upper extremity superficial thrombosis. OBJECTIVE: Vital Signs: Temperature 98.3 degrees, pulse 93, respiratory rate 20, blood pressure 120/82, oxygen saturation 95% on room air. HEENT: Head normocephalic. No trauma. PERRLA. Neck: Supple. No JVD. No masses. Central trachea. Chest: Decreased breath sounds bilaterally with some crepitus at the bases. Abdomen: Soft. Slightly protuberant. Nontender, nondistended. Positive bowel sounds. Extremities: Right upper extremity edema 1 to 2+. Lower extremity, no edema. No clubbing. No cyanosis. Neurological Examination: The patient is alert and oriented x3. No focal deficits. Laboratory: WBC 13.5, hemoglobin 14.3, hematocrit 44.5, platelets 502,000. Sodium 138, potassium 4.5, chloride 96, bicarbonate 28, BUN 21, creatinine 0.7, glucose 111, calcium 9.2. ASSESSMENT AND PLAN: 1. Acute hypoxemic respiratory failure secondary to left lower lobe pneumonia, chronic obstructive pulmonary disease exacerbation. I will decrease the dose of the steroids today again from prednisone 20 mg twice a day to 20 mg daily. I will continue with the same management. He seems to be feeling better. No wheezing. 2. Chronic obstructive pulmonary disease exacerbation, as above. We will continue with the same management. Continue antibiotics. 3. Possible right apex lung mass that was demonstrated on the CT scan dated 02/03/2019. Pulmonary department following this patient. Probably, this patient will have a new CT scan done and/or biopsy. I will wait for tomorrow. 4. Hypertension, stable. 5. Hyperglycemia, likely due to steroids. Hemoglobin A1c 5.7. 6. Chest pain and left shoulder pain due to musculoskeletal type of pain. 7. Constipation, better. 8. Tobacco use. This patient has been highly advised against tobacco use. I will continue with daily cessation education. 9. Anxiety. Continue with the same treatment. 10. Right upper extremity superficial thrombosis. We will monitor for now. cc: Diogo Thompson MD
[2019-02-10] MEDS: LOVENOX SUBQ SCH (20:51)
--- NOTE | 2019-02-11 01:09 | PULMONOLOGY PROGRESS NOTE ---
DATE: 02/10/2019 SUBJECTIVE: The patient is awake, alert, and conversant. He has a slightly wet cough. He reports he feels better. OBJECTIVE: Vital Signs: The patient has been afebrile for the last 24 hours. BP 137/83, heart rate 99, respiratory rate 18, oxygen saturation 96% on nasal cannula. HEENT: Pupils are equal and reactive. Oropharynx appears clear. Neck: Supple. Chest: Reveals occasional rhonchi without wheezing or tactile fremitus. Cardiac: S1-S2. Abdomen: Soft without hepatosplenomegaly. Extremities: Without edema. LABORATORIES: White blood count 13.51, hemoglobin 14.3, platelet count 502,000. Sodium 138, potassium 4.5, chloride 96, bicarbonate 28, BUN 21, creatinine 0.7. IMPRESSION: A 48-year-old with: 1. Acute hypoxemic respiratory failure. 2. Pneumonia. 3. Lung mass. 4. Sputum production. DISCUSSION: A 48-year-old with problems outlined above. Chest x-ray is improving. PLAN: 1. Continue current steroid and antibiotic regimen. 2. Continue oxygen for hypoxemic respiratory failure. We will initiate the O2 protocol and attempt to wean oxygen off the patient. 3. Follow up pneumonia and lung mass with CT scan of the thorax tomorrow. 4. Continue bronchial hygiene. cc: Dmitri Yan MD
[2019-02-11] MEDS: DUONEB (A & A) INH SCH ×3 (03:02→11:09)
[2019-02-11] MEDS: NORCO-10 PO PRN ×2 (03:27→10:15)
[2019-02-11] MEDS: VANCOMYCIN 2,000 MG in NS 500 ML IV SCH (04:54)
[2019-02-11] MEDS: KLONOPIN PO PRN (06:44)
[2019-02-11 07:34] LABS: AGAP 11; BUN 23 mg/dL (8-22); CALCIUM 8.7 mg/dL (8.8-10.2); CHLORIDE 94 mmol/L (98-107); COSMO 272; CREATININE 0.7 mg/dL (0.7-1.2); ESTIMATED GFR > 60; GLUCOSE 108 mg/dL (70-104); POTASSIUM 4.8 mmol/L (3.5-5.1); SODIUM 134 mmol/L (136-145); TCO2 29 mmol/L (25-35)
[2019-02-11 07:46] VITALS: BP 115/72
[2019-02-11] MEDS: EFFEXOR XR PO SCH (08:26)
[2019-02-11] MEDS: MIRALAX PO SCH (08:27)
[2019-02-11] MEDS: NICODERM PATCH TD SCH (08:27)
[2019-02-11] MEDS: WELLBUTRIN XL PO SCH (08:27)
[2019-02-11] MEDS: DULCOLAX PR SCH (08:27)
[2019-02-11] MEDS: NEURONTIN PO SCH (08:27)
--- NOTE | 2019-02-11 08:30 | Diag Imaging Result Doc PS360 ---
CT THORAX W/O CONTRAST - 02/11/2019 INDICATION: lung mass COMPARISON: 02/09/2019, 02/03/2019 FINDINGS: The dense multifocal infiltrates bilaterally have significantly improved. There are some faint hazy residual infiltrates in the right upper lobe and left lower lobe. No pneumothorax or pleural effusion. No adenopathy. Heart size is top normal. There is severe constipation the upper abdomen. Otherwise the upper abdomen appears unremarkable. There are mild compression fractures in the lower thoracic spine. No acute bony lesions. IMPRESSION: 1. Significant improvement in the bilateral infiltrates. No suspicious findings seen. 2. Constipation. This exam was performed using automated exposure control, adjustment of mA or kV according to patient size, and/or use of iterative reconstruction technique Electronically signed by Marcos Ronquillo 02/11/2019 8:28 AM
[2019-02-11] MEDS ORDERED: PREDNISONE PO SCH (09:00)
[2019-02-11] MEDS ORDERED: FLU VACCINE IM ONE (12:39)
[2019-02-11] MEDS ORDERED: PNEUMOVAX 23 IM ONE (12:44)
--- NOTE | 2019-02-12 19:19 | DISCHARGE SUMMARY ---
ADMISSION DATE: 02/01/2019 DISCHARGE DATE: 02/11/2019 DISCHARGE DIAGNOSES: 1. Acute hypoxemic respiratory failure due to left lower lobe pneumonia, chronic obstructive pulmonary disease exacerbation. 2. Chronic obstructive pulmonary disease exacerbation. 3. Left lower lobe pneumonia. 4. Initially admitted also with the possibility of right apex lung mass demonstrated on the CT scan dated 02/03/2019. 5. Hypertension. 6. Hyperglycemia with normal hemoglobin A1c. 7. Constipation. 8. Tobacco abuse. 9. Anxiety. 10. Right upper extremity superficial thrombosis. PROCEDURE PERFORMED: 1. Chest x-ray dated 02/01/2019. Impression: Mild prominence of infrahilar markings, apparent small infiltrate at lateral left base. 2. Head CT scan dated 02/01/2019. Impression: No visible acute intracranial abnormality, no hemorrhage or mass effect. CT angiogram dated 02/03/2019. Impression: Artifact. No pulmonary emboli. Bilateral pneumonia, most prominent at the right apex and left lower lobe. The possibility of mass lesion at the right apex cannot be excluded. 3. Chest x-ray dated 02/06/2019. Impression: Interval slight increase in ill-defined consolidation in the left lower lobe. 4. Chest x-ray dated 02/09/2019. Impression: Residual atelectasis in the left lower lobe. 5. CT scan dated 02/11/2019. Impression: Significant improvement in the bilateral infiltrates. No suspicious findings seen and constipation. HOSPITAL COURSE: A 48-year-old male was admitted on 02/01/2019 due to shortness of breath and productive cough for 10 days. As per the patient, it was getting worse. He also had left arm weakness which is a residual from previous cerebrovascular accident. He has a past medical history of hypertension, chronic pain syndrome, hyperlipidemia, COPD, depression, anxiety, and previous cerebrovascular accident as well as shingles. In the emergency room. The patient was noted to have a small left lateral base infiltrate. He was wheezing heavily, and noted to have COPD as well. He was placed on the BiPAP machine, and transferred to [facility] for admission. His flu screen was negative. He was admitted to the [facility] for further evaluation and treatment. He was placed on antibiotics, and we basically continued with his home medications. We did a PE that showed also the possibility of right apex mass, and also bilateral pneumonia. Pulmonary Department was consulted. We treated this patient with antibiotics, steroids, breathing treatment, and oxygen supplementation. He was getting better on a daily basis. He was remarkably anxious, and he requested to increase his dose of Klonopin from twice a day to 3 times a day. We will monitor this patient closely. He started breathing better, and also he was not requiring too much oxygen. We repeated a CT scan of the chest that showed a significant improvement of the bilateral infiltrates, but no suspicious findings seen on this one. It also showed constipation, but the patient was doing really good today tolerating p.o. and ambulating. I asked for home O2 evaluation, but he did not require oxygen to go home with. This patient will be discharged home. I have decreased the dose of the anxiety medication. I told the patient that I will not give him pain medication on top of the anxiety medication. He understood, and he only requested Klonopin twice a day as needed. He will need to follow up with Dr. Pugh in 1 week, and also follow up with his primary care provider in 1 week as well. At the moment of discharge, the patient was in a stable medical condition tolerating p.o. and ambulating. No oxygen has been required. DISCHARGE EXAMINATION: Vital signs: Temperature 97.6 degrees, pulse 92 respiratory rate 16, and blood pressure 115/72. HEENT: Head normocephalic, no trauma. PERRLA. Neck: Supple. No JVD. No masses. Central trachea. Chest: Decreased breath sounds bilaterally with some crepitus at the bases. Abdomen: Soft, and slightly protuberant, nontender, and nondistended. Positive bowel sounds. Extremities: Right upper extremity edema, 1+ lower extremity with no edema. No clubbing. No cyanosis. Neurological: The patient was alert and oriented x3. No focal deficits. LABORATORY: Sodium 134, potassium 4.8, chloride 94, bicarbonate 29, BUN 23, creatinine 0.7 glucose 108, and calcium 8.7. DISCHARGE MEDICATIONS: 1. Acetaminophen 650 mg p.o. q.6 hours as needed for pain and/or fever. 2. Albuterol sulfate inhaler 2 puff inhaled q.6 hours as needed. 3. Tessalon 100 mg p.o. t.i.d. as needed. 4. Klonopin 1 mg p.o. b.i.d. as needed for anxiety. 5. Gabapentin 300 mg p.o. b.i.d. 6. Medrol Dosepak 4 mg p.o. as directed. 7. MiraLAX 17 g p.o. b.i.d. 8. Effexor 150 mg p.o. daily. TIME SPENT: Time discharging this patient 35 minutes. cc: Diogo Thompson MD
--- NOTE | 2019-02-12 22:32 | Extremity Venous Study ---
PROCEDURE NAME: Venous U/S Bilateral Arms - 02/08/2019 REFERRING PHYSICIAN: Dr. Hickey. READING PHYSICIAN: Chago Allen MD [facility] CONSULTANT: Chely. INDICATION: Right arm pain. FINDINGS: The deep veins were imaged in both upper extremities. They are compressible, patent without thrombus. The superficial veins in the left upper extremity were imaged. They are compressible, patent and without thrombus. The right cephalic vein, however, is thrombosed in the distal right forearm. INTERPRETATION: Acute superficial thrombophlebitis of the right cephalic vein. cc: MD Diogo Pate MD
== END 2019-02-11 13:16 | disposition home or self-care (01) | DRG 193 ==
LOC: P.ED 18:15 → SUATTDRO 20:54 → 2N 20:54 → ICU 02-03 13:47 → 3N 02-06 15:50
PROVIDERS: ATTEND Internal Medicine